=== PATIENT | female | born 1960 | race Caucasian/White ===

== ENCOUNTER 2016-09-25 18:01 | Emergency (ER) | payer MEDICAID ==
[~2016-09-25] VITALS: Ht 160 cm; Wt 53.5 kg
[~2016-09-25 18:01] MED LIST: CEFD300C2 PO; CYCL-259 PO; FLUO20CA19 PO; HYDR-3138 PO; HYDR1TAB12 PO; LIDO700A5 TD; PRED20TA PO; SERT100T PO
[2016-09-25] MEDS ORDERED: ONDANSETRON 2MG/ML, 2ML ONE (18:25)
[2016-09-25] MEDS ORDERED: ONDANSETRON 2MG/ML, 2ML IVPush ONE (18:30)
[2016-09-25] MEDS ORDERED: DIAZEPAM 5 MG/ML, 2ML IVPush ONE ×2 (18:30→19:57)
[2016-09-25] MEDS ORDERED: SODIUM CHLORIDE 0.9% 1,000ML IVBOLUS ONE (18:30)
[2016-09-25] MEDS ORDERED: SODIUM CHLORIDE FLUSH 10ML SYR IVF ONE (18:30)
[2016-09-25] MEDS ORDERED: DIAZEPAM 5 MG/ML, 2ML ONE ×2 (18:42→20:08)
[2016-09-25 18:45] LABS: HEMOGLOBIN 15.3 g/dL (11.7-16.4)
[2016-09-25] MEDS ORDERED: OXYC5CAP4 PO (18:54)
[2016-09-25 19:00] LABS: ASPARTATE AMINO TRANSFERASE 38 U/L (15-37); BLOOD UREA NITROGEN 18 mg/dL (7-18)
[2016-09-25 20:39] VITALS: BP 117/75
== END 2016-09-25 20:41 | disposition home or self-care (01) ==
LOC: ED 20:35
DX: R11.2 Nausea with vomiting, unspecified (principal); E86.0 Dehydration; R25.2 Cramp and spasm; I10 Essential (primary) hypertension; Z90.710 Acquired absence of both cervix and uterus
CPT/HCPCS: 36415; 71010; 80053; 81001; 83735; 85025; 87086; 96361; 96374; 96375; 99285; J2405; J3360; J7030

== ENCOUNTER 2016-11-20 04:23 | Emergency (ER) | payer MEDICAID ==
[~2016-11-20] VITALS: Ht 160 cm; Wt 52.3 kg
[~2016-11-20 04:23] MED LIST changes: -CEFD300C2 PO; +CEFD300C37 PO; +OXYC5CAP4 PO
[2016-11-20] MEDS ORDERED: METOCLOPRAMIDE 5 MG/ML, 2ML IVPush ONE (05:00)
[2016-11-20] MEDS ORDERED: SODIUM CHLORIDE FLUSH 10ML SYR IVF ONE (05:00)
[2016-11-20] MEDS ORDERED: DIPHENHYDRAMINE 50 MG/ML, 1ML IVPush ONE (05:00)
[2016-11-20] MEDS ORDERED: SODIUM CHLORIDE 0.9% 1,000ML IVBOLUS ONE (05:00)
[2016-11-20] MEDS ORDERED: KETOROLAC 30 MG/1 ML ONE (05:00)
[2016-11-20] MEDS ORDERED: KETOROLAC 30 MG/1 ML IVPush ONE (05:00)
[2016-11-20] MEDS ORDERED: METOCLOPRAMIDE 5 MG/ML, 2ML ONE (05:01)
[2016-11-20] MEDS ORDERED: DIPHENHYDRAMINE 50 MG/ML, 1ML ONE (05:01)
[2016-11-20 05:46] LABS: BLOOD UREA NITROGEN 13 mg/dL (7-18)
[2016-11-20 05:48] VITALS: BP 144/80
== END 2016-11-20 06:11 | disposition home or self-care (01) ==
LOC: ED 05:37
DX: G43.809 Other migraine, not intractable, without status migrainosus (principal); F17.200 Nicotine dependence, unspecified, uncomplicated
CPT/HCPCS: 36415; 80048; 82040; 85025; 96361; 96374; 96375; 99284; J1200; J1885; J2765; J7030

== ENCOUNTER 2016-11-26 18:28 | Emergency (ER) | payer MEDICAID ==
[~2016-11-26] VITALS: Ht 160 cm; Wt 51.5 kg
[2016-11-26] MEDS ORDERED: ONDANSETRON 2MG/ML, 2ML IVPush ONE (19:00)
[2016-11-26] MEDS ORDERED: SODIUM CHLORIDE 0.9% 1,000ML IVBOLUS ONE (19:00)
[2016-11-26] MEDS ORDERED: SODIUM CHLORIDE FLUSH 10ML SYR IVF ONE (19:00)
[2016-11-26] MEDS ORDERED: ONDANSETRON 2MG/ML, 2ML ONE (19:20)
[2016-11-26] MEDS ORDERED: MORPHINE SULFATE 4 MG/ML, 1ML ONE ×2 (19:20→20:02)
[2016-11-26] MEDS: MORPHINE SULFATE 4 MG/ML, 1ML IVPush PRN ×2 (19:31→20:05)
[2016-11-26 19:57] LABS: ASPARTATE AMINO TRANSFERASE 52 U/L (15-37); BLOOD UREA NITROGEN 17 mg/dL (7-18)
[2016-11-26] MEDS ORDERED: OMNIPAQUE 350 MG/ML, 100ML BOTTLE ONE (21:27)
[2016-11-26] MEDS ORDERED: PROMETHAZINE 25 MG/ML, 1ML ONE (21:30)
[2016-11-26] MEDS ORDERED: PROMETHAZINE 25 MG/ML, 1ML IM ONE (21:30)
[2016-11-26 22:20] VITALS: BP 110/74
== END 2016-11-26 22:22 | disposition home or self-care (01) ==
LOC: ED 22:17
DX: K92.2 Gastrointestinal hemorrhage, unspecified (principal); K86.1 Other chronic pancreatitis; I10 Essential (primary) hypertension; R19.7 Diarrhea, unspecified; R11.2 Nausea with vomiting, unspecified; F19.10 Other psychoactive substance abuse, uncomplicated
CPT/HCPCS: 36415; 74177; 80048; 80076; 82040; 83690; 85025; 96361; 96372; 96374; 96375; 96376; 99285; J2405; J2550; J7030; Q9967

== ENCOUNTER 2016-12-19 09:54 | Emergency (ER) | payer MEDICAID ==
[~2016-12-19] VITALS: Ht 160 cm; Wt 52.6 kg
[2016-12-19 09:55] VITALS: BP 121/82
[2016-12-19] MEDS ORDERED: KETOROLAC 30 MG/1 ML ONE (10:49)
[2016-12-19] MEDS ORDERED: ONDANSETRON ODT 4 MG ONE (10:49)
[2016-12-19] MEDS ORDERED: ONDANSETRON ODT 4 MG PO ONE (11:00)
[2016-12-19] MEDS ORDERED: KETOROLAC 30 MG/1 ML IM ONE (11:00)
[2016-12-19] MEDS ORDERED: LIDOCAINE 1%, 20ML ONE (12:12)
== END 2016-12-19 11:57 | disposition home or self-care (01) ==
LOC: ED 11:07
DX: S73.101A Unspecified sprain of right hip, initial encounter (principal); S39.012A Strain of muscle, fascia and tendon of lower back, initial encounter; I10 Essential (primary) hypertension; M19.90 Unspecified osteoarthritis, unspecified site; Z90.710 Acquired absence of both cervix and uterus; W19.XXXA Unspecified fall, initial encounter; Y93.89 Activity, other specified; Y92.009 Unspecified place in unspecified non-institutional (private) residence as the place of occurrence of the external cause; Y99.9 Unspecified external cause status
CPT/HCPCS: 73502; 96372; 99284; J1885; Q0162

== ENCOUNTER 2017-01-16 17:24 | Inpatient (IN) | payer MEDICAID ==
[~2017-01-16] VITALS: Ht 160 cm; Wt 57.1 kg
[2017-01-16] MEDS ORDERED: SODIUM CHLORIDE 0.9% 1,000 ML IV ONE (18:06)
[2017-01-16] MEDS ORDERED: FAMOTIDINE 20 MG/2 ML ONE (18:10)
[2017-01-16] MEDS ORDERED: HYDROmorphone 1 MG/ML, 1ML ONE ×2 (18:10→20:24)
[2017-01-16] MEDS ORDERED: ONDANSETRON 2MG/ML, 2ML ONE (18:10)
[2017-01-16] MEDS: HYDROmorphone 1 MG/ML, 1ML IVPush PRN ×2 (18:16→20:33)
[2017-01-16] MEDS ORDERED: LOPERAMIDE 2 MG CAPSULE ONE (18:22)
[2017-01-16] MEDS ORDERED: ONDANSETRON 2MG/ML, 2ML IVPush ONE ×2 (18:30→20:30)
[2017-01-16] MEDS ORDERED: SODIUM CHLORIDE 0.9% 1,000ML IVBOLUS ONE ×2 (18:30→20:30)
[2017-01-16] MEDS ORDERED: LOPERAMIDE 2 MG CAPSULE PO ONE (18:30)
[2017-01-16] MEDS ORDERED: SODIUM CHLORIDE FLUSH 10ML SYR IVF ONE (18:30)
[2017-01-16] MEDS ORDERED: FAMOTIDINE 20 MG/2 ML IVP ONE (18:30)
[2017-01-16 18:39] LABS: BLOOD UREA NITROGEN 14 mg/dL (7-18)
[2017-01-16 18:43] LABS: ASPARTATE AMINO TRANSFERASE 81 U/L (15-37)
[2017-01-16] MEDS ORDERED: TEMAZEPAM 15 MG CAPSULE PO PRN (20:30)
[2017-01-16] MEDS ORDERED: LABETALOL 5MG/ML 40ML VIAL IVPush PRN (20:30)
[2017-01-16] MEDS ORDERED: THIAMINE 100 MG, MVI ADULT 10 ML, FOLIC ACID 1 MG in D5%-0.9% NACL 1,000 ML IV SCH (20:30)
[2017-01-16] MEDS ORDERED: OXYcodone IR 5MG TABLET PO PRN (20:30)
[2017-01-16] MEDS ORDERED: LORazepam 1MG TABLET PO PRN (20:30)
[2017-01-16] MEDS ORDERED: DOCUSATE 100 MG CAPSULE PO PRN (20:30)
[2017-01-16 21:10] VITALS: BP 108/70
[2017-01-16] MEDS: FAMOTIDINE 20 MG/2 ML IVPush SCH (22:31)
[2017-01-16] MEDS: morphine SULFATE 10 MG/ML, 1ML IVPush PRN (22:32)
[2017-01-16] MEDS: NICOTINE 14MG/24 HR PATCH.TD24 TD SCH (22:46)
[2017-01-17] MEDS: morphine SULFATE 10 MG/ML, 1ML IVPush PRN ×7 (01:36→20:35)
[2017-01-17 02:58] VITALS: BP 117/79
[2017-01-17 05:18] LABS: ASPARTATE AMINO TRANSFERASE 57 U/L (15-37); BLOOD UREA NITROGEN 12 mg/dL (7-18)
[2017-01-17 07:32] VITALS: BP 110/75
[2017-01-17] MEDS: FAMOTIDINE 20 MG/2 ML IVPush SCH ×2 (07:42→19:59)
[2017-01-17] MEDS ORDERED: POTASSIUM PHOSPHATE 22 MEQ in SODIUM CHLORIDE 0.9% 500 ML IV ONE (08:30)
[2017-01-17] MEDS: ONDANSETRON 2MG/ML, 2ML IVPush PRN ×2 (14:03→23:18)
[2017-01-17 15:23] VITALS: BP 116/79
[2017-01-17] MEDS ORDERED: DIPHENHYDRAMINE 25 MG CAPSULE PO ONE (16:00)
[2017-01-17] MEDS ORDERED: DIPHENHYDRAMINE 50 MG/ML, 1ML IVPush PRN (19:30)
[2017-01-17] MEDS: NICOTINE 14MG/24 HR PATCH.TD24 TD SCH (19:59)
[2017-01-17 20:27] VITALS: BP 122/81
[2017-01-17] MEDS: SODIUM CHLORIDE 0.9% 1,000 ML IV SCH (20:35)
[2017-01-18] MEDS: morphine SULFATE 10 MG/ML, 1ML IVPush PRN ×3 (00:29→08:51)
[2017-01-18 03:16] VITALS: BP 104/65
[2017-01-18] MEDS: SODIUM CHLORIDE 0.9% 1,000 ML IV SCH ×2 (04:44→12:30)
[2017-01-18 05:43] LABS: BLOOD UREA NITROGEN 7 mg/dL (7-18)
[2017-01-18 05:45] LABS: ASPARTATE AMINO TRANSFERASE 74 U/L (15-37)
[2017-01-18 07:34] VITALS: BP 117/80
[2017-01-18] MEDS: FAMOTIDINE 20 MG/2 ML IVPush SCH (08:51)
[2017-01-18] MEDS ORDERED: MULTIVITAMINS/MINERALS TABLET PO SCH (09:00)
[2017-01-18] MEDS ORDERED: THIAMINE 100MG TABLET PO SCH (09:00)
[2017-01-18] MEDS ORDERED: MAGNESIUM SULFATE PMX 4GM/100M 100 ML IV ONE (11:30)
[2017-01-18] MEDS ORDERED: POTASSIUM PHOSPHATE 44 MEQ in SODIUM CHLORIDE 0.9% 500 ML IV ONE (11:30)
[2017-01-18 14:06] VITALS: BP 103/69
== END 2017-01-18 15:06 | disposition left against medical advice (07) | DRG 439 ==
LOC: ED 17:38 → EDIP 20:09 → 3NE 20:59
PROVIDERS: ADMIT Internal Medicine; ATTEND Internal Medicine
DX: K85.20 Alcohol induced acute pancreatitis without necrosis or infection (principal); E87.1 Hypo-osmolality and hyponatremia; E87.2 Acidosis; F17.210 Nicotine dependence, cigarettes, uncomplicated; F10.20 Alcohol dependence, uncomplicated; K76.0 Fatty (change of) liver, not elsewhere classified; D75.89 Other specified diseases of blood and blood-forming organs; D69.6 Thrombocytopenia, unspecified; E83.39 Other disorders of phosphorus metabolism; E83.42 Hypomagnesemia; K70.9 Alcoholic liver disease, unspecified; E86.0 Dehydration; Z71.6 Tobacco abuse counseling; Z82.49 Family history of ischemic heart disease and other diseases of the circulatory system; Z90.710 Acquired absence of both cervix and uterus
CPT/HCPCS: 36415; 74022; 76700; 80053; 80061; 82607; 82746; 83690; 83735; 84100; 84443; 85025; 93005; 96374; 96375; J1170; J2405; J3411; J7042; J1200; J2270; J3475; J7030; J7040; Q0163; S0028

== ENCOUNTER 2017-02-08 17:29 | Inpatient (IN) | payer MEDICAID ==
[~2017-02-08] VITALS: Ht 160 cm; Wt 52.2 kg
[~2017-02-08 17:29] MED LIST changes: -HYDR-3138 PO; +HYDR-3237 PO; +OXYC5CAP2 PO; -OXYC5CAP4 PO
[2017-02-08] MEDS ORDERED: ALBUTEROL/IPRATROPIUM 2.5MG/0.5MG, 3 ML NPPB PRN (18:00)
[2017-02-08] MEDS ORDERED: methylPREDNISolone SOD SUCC 125 MG/2 ML ONE (18:20)
[2017-02-08 18:21] LABS: HEMATOCRIT 44.5 % (34.6-47.8); HEMOGLOBIN 15.2 g/dL (11.7-16.4); WHITE BLOOD COUNT 8.9 x10^3/uL (3.4-10)
[2017-02-08] MEDS ORDERED: methylPREDNISolone SOD SUCC 125 MG/2 ML IVP ONE (18:30)
[2017-02-08] MEDS ORDERED: OMNIPAQUE 350 MG/ML, 100ML BOTTLE ONE (18:35)
[2017-02-08 18:42] LABS: ASPARTATE AMINO TRANSFERASE 129 U/L (15-37); BLOOD UREA NITROGEN 11 mg/dL (7-18)
[2017-02-08 18:47] LABS: IS PT STATUS REG ER OR PRE ER? YES
[2017-02-08] MEDS ORDERED: SODIUM CHLORIDE FLUSH 10ML SYR IVF ONE (19:00)
[2017-02-08] MEDS ORDERED: SODIUM CHLORIDE 0.9% 1,000ML IVBOLUS ONE (19:30)
[2017-02-08] MEDS ORDERED: LORazepam 2 MG/ML, 1ML IVPush PRN (20:00)
[2017-02-08] MEDS ORDERED: SODIUM CHLORIDE FLUSH 10ML SYR IVF PRN (20:00)
[2017-02-08] MEDS ORDERED: NS + 20MEQ KCL 1,000 ML IV SCH (20:27)
[2017-02-08] MEDS ORDERED: LORazepam 2 MG/ML, 1ML IV PRN ×2 (20:30)
[2017-02-08] MEDS ORDERED: GUAIFENESIN/DM 200-20MG, 10ML UDC PO PRN (20:30)
[2017-02-08] MEDS ORDERED: LORazepam 1MG TABLET PO PRN (20:30)
[2017-02-08] MEDS: methylPREDNISolone SOD SUCC 125 MG/2 ML IVPush SCH (20:30)
[2017-02-08] MEDS ORDERED: ACETAMINOPHEN 325 MG TABLET PO PRN (20:30)
[2017-02-08] MEDS: NICOTINE 14MG/24 HR PATCH.TD24 TD SCH (20:30)
[2017-02-08] MEDS ORDERED: POLYETHYLENE GLYCOL 17 GM PACKET PO PRN (20:30)
[2017-02-08] MEDS ORDERED: ENOXAPARIN 40 MG/0.4 ML ONE (20:58)
[2017-02-08] MEDS ORDERED: CEFTRIAXONE PMX 1GM/50ML 50 ML ONE (20:58)
[2017-02-08] MEDS ORDERED: NS + 20MEQ KCL 1,000 ML IV ONE (20:58)
[2017-02-08] MEDS: CEFTRIAXONE PMX 1GM/50ML 50 ML IV SCH (21:11)
[2017-02-08] MEDS: ENOXAPARIN 40 MG/0.4 ML SQ SCH (21:11)
[2017-02-08] MEDS: DOXYCYCLINE 100 MG in DEXTROSE 5% 250 ML IV SCH (22:30)
[2017-02-08 23:20] VITALS: BP 121/81
[2017-02-08 23:23] VITALS: BP 121/82
[2017-02-09] MEDS ORDERED: LORazepam 1MG TABLET ONE (00:29)
[2017-02-09] MEDS: LORazepam 1MG TABLET PO PRN ×3 (00:33→20:36)
[2017-02-09] MEDS: ONDANSETRON 2MG/ML, 2ML IVPush PRN ×4 (00:33→20:17)
[2017-02-09 01:27] VITALS: BP 125/87
[2017-02-09] MEDS: LORazepam 2 MG/ML, 1ML IV PRN ×2 (02:54→06:22)
[2017-02-09] MEDS: methylPREDNISolone SOD SUCC 125 MG/2 ML IVPush SCH ×3 (04:29→20:17)
[2017-02-09 05:44] LABS: ASPARTATE AMINO TRANSFERASE 146 U/L (15-37); BLOOD UREA NITROGEN 7 mg/dL (7-18)
[2017-02-09 05:56] LABS: HEMATOCRIT 40.2 % (34.6-47.8); HEMOGLOBIN 13.6 g/dL (11.7-16.4); WHITE BLOOD COUNT 4.2 x10^3/uL (3.4-10)
[2017-02-09 07:20] VITALS: BP 144/88
[2017-02-09] MEDS: DOXYCYCLINE 100 MG in DEXTROSE 5% 250 ML IV SCH ×2 (08:30→21:29)
[2017-02-09] MEDS: SENNA/DOCUSATE TABLET PO SCH (09:00)
[2017-02-09] MEDS: FLUTICASONE/VILANTEROL 100-25MCG/INH INH SCH (09:00)
[2017-02-09] MEDS: morphine SULFATE 10 MG/ML, 1ML IVPush PRN ×3 (14:03→20:36)
[2017-02-09 15:00] VITALS: BP 128/84
[2017-02-09 19:55] VITALS: BP 120/81
[2017-02-09] MEDS: CEFTRIAXONE PMX 1GM/50ML 50 ML IV SCH (20:16)
[2017-02-09] MEDS: ENOXAPARIN 40 MG/0.4 ML SQ SCH (20:17)
[2017-02-09] MEDS: NICOTINE 14MG/24 HR PATCH.TD24 TD SCH (20:17)
[2017-02-10] MEDS: morphine SULFATE 10 MG/ML, 1ML IVPush PRN ×8 (00:14→21:57)
[2017-02-10] MEDS: LORazepam 0.5MG TABLET PO PRN ×3 (00:15→08:53)
[2017-02-10 03:59] VITALS: BP 116/79
[2017-02-10] MEDS: methylPREDNISolone SOD SUCC 125 MG/2 ML IVPush SCH ×3 (04:27→21:15)
[2017-02-10] MEDS: ONDANSETRON 2MG/ML, 2ML IVPush PRN ×3 (04:27→18:31)
[2017-02-10] MEDS: ALBUTEROL/IPRATROPIUM 2.5MG/0.5MG, 3 ML NPPB PRN (05:00)
[2017-02-10 07:35] VITALS: BP 112/77
[2017-02-10] MEDS: SENNA/DOCUSATE TABLET PO SCH (07:48)
[2017-02-10] MEDS ORDERED: LORazepam 1MG TABLET ONE (08:48)
[2017-02-10] MEDS: FLUTICASONE/VILANTEROL 100-25MCG/INH INH SCH (08:52)
[2017-02-10] MEDS: DOXYCYCLINE 100 MG in DEXTROSE 5% 250 ML IV SCH ×2 (08:53→21:57)
[2017-02-10] MEDS ORDERED: POTASSIUM CHLORIDE 20 MEQ, MAGNESIUM SULFATE 1 GM, THIAMINE 100 MG, FOLIC ACID 1 MG, MV... IV SCH (09:00)
[2017-02-10] MEDS: LORazepam 2 MG/ML, 1ML IV PRN ×3 (11:30→21:15)
[2017-02-10 14:02] VITALS: BP 121/83
[2017-02-10 20:00] VITALS: BP 119/77
[2017-02-10] MEDS: NICOTINE 14MG/24 HR PATCH.TD24 TD SCH (20:30)
[2017-02-10] MEDS: ENOXAPARIN 40 MG/0.4 ML SQ SCH (21:14)
[2017-02-10] MEDS: CEFTRIAXONE PMX 1GM/50ML 50 ML IV SCH (21:14)
[2017-02-11] MEDS: ALBUTEROL/IPRATROPIUM 2.5MG/0.5MG, 3 ML NPPB PRN ×2 (00:43→16:47)
[2017-02-11] MEDS: morphine SULFATE 10 MG/ML, 1ML IVPush PRN ×6 (01:16→20:44)
[2017-02-11] MEDS: ONDANSETRON 2MG/ML, 2ML IVPush PRN ×4 (01:16→22:46)
[2017-02-11] MEDS: LORazepam 1MG TABLET PO PRN ×2 (02:31→22:34)
[2017-02-11 02:56] VITALS: BP 117/79
[2017-02-11] MEDS: methylPREDNISolone SOD SUCC 125 MG/2 ML IVPush SCH (04:16)
[2017-02-11 05:13] LABS: HEMATOCRIT 36.8 % (34.6-47.8); HEMOGLOBIN 12.3 g/dL (11.7-16.4); WHITE BLOOD COUNT 5.3 x10^3/uL (3.4-10)
[2017-02-11 05:22] LABS: BLOOD UREA NITROGEN 11 mg/dL (7-18)
[2017-02-11 07:29] VITALS: BP 125/84
[2017-02-11] MEDS: SENNA/DOCUSATE TABLET PO SCH (08:03)
[2017-02-11] MEDS: DOXYCYCLINE 100 MG in DEXTROSE 5% 250 ML IV SCH ×2 (08:10→22:22)
[2017-02-11] MEDS: FLUTICASONE/VILANTEROL 100-25MCG/INH INH SCH (08:10)
[2017-02-11] MEDS ORDERED: LORazepam 1MG TABLET ONE (08:23)
[2017-02-11] MEDS: LORazepam 0.5MG TABLET PO PRN ×2 (08:28→15:22)
[2017-02-11] MEDS ORDERED: FLUCONAZOLE 100 MG TABLET PO ONE (09:30)
[2017-02-11] MEDS: FAMOTIDINE 20 MG/2 ML IVPush SCH ×2 (11:25→22:22)
[2017-02-11] MEDS: SUCRALFATE 1 GM/10 ML UDC PO SCH ×3 (11:26→22:22)
[2017-02-11 13:03] VITALS: BP 134/82
[2017-02-11] MEDS: DOCUSATE 100 MG CAPSULE PO PRN (15:23)
[2017-02-11] MEDS: methylPREDNISolone SOD SUCC 40 MG/ML IVPush SCH ×2 (18:17→20:44)
[2017-02-11 20:01] VITALS: BP 122/84
[2017-02-11] MEDS: NICOTINE 14MG/24 HR PATCH.TD24 TD SCH (20:30)
[2017-02-11] MEDS: CEFTRIAXONE PMX 1GM/50ML 50 ML IV SCH (20:44)
[2017-02-11] MEDS: ENOXAPARIN 40 MG/0.4 ML SQ SCH (22:22)
[2017-02-12] MEDS: morphine SULFATE 10 MG/ML, 1ML IVPush PRN ×3 (00:44→08:38)
[2017-02-12 02:39] VITALS: BP 118/80
[2017-02-12] MEDS: ONDANSETRON 2MG/ML, 2ML IVPush PRN (04:34)
[2017-02-12] MEDS: LORazepam 1MG TABLET PO PRN (05:56)
[2017-02-12] MEDS: FLUTICASONE/VILANTEROL 100-25MCG/INH INH SCH (08:15)
[2017-02-12] MEDS: SUCRALFATE 1 GM/10 ML UDC PO SCH ×4 (08:15→20:25)
[2017-02-12] MEDS: SENNA/DOCUSATE TABLET PO SCH (08:16)
[2017-02-12] MEDS: FAMOTIDINE 20 MG/2 ML IVPush SCH ×2 (08:16→20:25)
[2017-02-12] MEDS: methylPREDNISolone SOD SUCC 40 MG/ML IVPush SCH ×2 (08:16→20:25)
[2017-02-12 08:22] VITALS: BP 126/79
[2017-02-12] MEDS: DOXYCYCLINE 100 MG in DEXTROSE 5% 250 ML IV SCH ×2 (10:33→22:38)
[2017-02-12 12:50] VITALS: BP 129/82
[2017-02-12] MEDS: HYDROcodone/APAP 5/325 TABLET PO PRN ×3 (14:28→22:38)
[2017-02-12 19:20] VITALS: BP 121/81
[2017-02-12] MEDS: NICOTINE 14MG/24 HR PATCH.TD24 TD SCH (20:20)
[2017-02-12] MEDS: CEFTRIAXONE PMX 1GM/50ML 50 ML IV SCH (20:25)
[2017-02-12] MEDS: ENOXAPARIN 40 MG/0.4 ML SQ SCH (20:25)
[2017-02-13 04:00] VITALS: BP 121/90
[2017-02-13] MEDS ORDERED: LORazepam 1MG TABLET ONE (06:03)
[2017-02-13] MEDS: HYDROcodone/APAP 5/325 TABLET PO PRN ×4 (06:07→20:22)
[2017-02-13] MEDS: LORazepam 1MG TABLET PO PRN ×3 (06:07→20:22)
[2017-02-13] MEDS: DOCUSATE 100 MG CAPSULE PO PRN (07:44)
[2017-02-13] MEDS: methylPREDNISolone SOD SUCC 40 MG/ML IVPush SCH (07:44)
[2017-02-13] MEDS: FAMOTIDINE 20 MG/2 ML IVPush SCH ×2 (07:44→20:22)
[2017-02-13] MEDS: SUCRALFATE 1 GM/10 ML UDC PO SCH ×4 (07:44→20:22)
[2017-02-13] MEDS: SENNA/DOCUSATE TABLET PO SCH (07:47)
[2017-02-13] MEDS: FLUTICASONE/VILANTEROL 100-25MCG/INH INH SCH (07:47)
[2017-02-13 07:56] VITALS: BP 123/94
[2017-02-13] MEDS: DOXYCYCLINE 100 MG in DEXTROSE 5% 250 ML IV SCH ×2 (10:47→22:48)
[2017-02-13] MEDS: ALBUTEROL/IPRATROPIUM 2.5MG/0.5MG, 3 ML NPPB PRN ×2 (10:55→17:20)
[2017-02-13 12:23] LABS: ASPARTATE AMINO TRANSFERASE 680 U/L (15-37); BLOOD UREA NITROGEN 12 mg/dL (7-18)
[2017-02-13 12:25] LABS: HEMATOCRIT 44.9 % (34.6-47.8); HEMOGLOBIN 15.1 g/dL (11.7-16.4); WHITE BLOOD COUNT 4.3 x10^3/uL (3.4-10)
[2017-02-13] MEDS ORDERED: POTASSIUM CHLORIDE 20 MEQ TAB.ER.PRT PO ONE (14:00)
[2017-02-13 14:11] VITALS: BP 116/89
[2017-02-13 19:46] VITALS: BP 113/82
[2017-02-13] MEDS: NICOTINE 14MG/24 HR PATCH.TD24 TD SCH (20:22)
[2017-02-13] MEDS: ENOXAPARIN 40 MG/0.4 ML SQ SCH (20:22)
[2017-02-13] MEDS: CEFTRIAXONE PMX 1GM/50ML 50 ML IV SCH (20:22)
[2017-02-14 02:01] VITALS: BP 117/85
[2017-02-14] MEDS: HYDROcodone/APAP 5/325 TABLET PO PRN ×6 (02:02→20:55)
[2017-02-14 05:42] LABS: HEMATOCRIT 42.4 % (34.6-47.8); HEMOGLOBIN 14.3 g/dL (11.7-16.4); WHITE BLOOD COUNT 5.8 x10^3/uL (3.4-10)
[2017-02-14 06:13] LABS: ASPARTATE AMINO TRANSFERASE 321 U/L (15-37); BLOOD UREA NITROGEN 13 mg/dL (7-18)
[2017-02-14] MEDS: LORazepam 1MG TABLET PO PRN ×3 (06:37→20:55)
[2017-02-14] MEDS: SUCRALFATE 1 GM/10 ML UDC PO SCH ×4 (07:03→20:53)
[2017-02-14] MEDS: SENNA/DOCUSATE TABLET PO SCH (07:03)
[2017-02-14] MEDS: FOLIC ACID 1 MG TABLET PO SCH (07:03)
[2017-02-14] MEDS: FLUTICASONE/VILANTEROL 100-25MCG/INH INH SCH (07:03)
[2017-02-14] MEDS: MULTIVITAMIN 1 TABLET PO SCH (07:03)
[2017-02-14] MEDS: FAMOTIDINE 20 MG/2 ML IVPush SCH ×2 (07:03→20:53)
[2017-02-14] MEDS: THIAMINE 100 MG/ML, 2ML IM SCH (07:04)
[2017-02-14 07:59] VITALS: BP 121/87
[2017-02-14] MEDS ORDERED: GUAI12009 PO (09:12)
[2017-02-14] MEDS ORDERED: FLUT1AER INH (09:12)
[2017-02-14] MEDS ORDERED: PRED10TA PO (09:12)
[2017-02-14] MEDS ORDERED: FAMO-79 PO (09:12)
[2017-02-14] MEDS: ONDANSETRON 2MG/ML, 2ML IVPush PRN (09:38)
[2017-02-14] MEDS: DOXYCYCLINE 100 MG in DEXTROSE 5% 250 ML IV SCH ×2 (09:38→22:21)
[2017-02-14 14:05] VITALS: BP 119/84
[2017-02-14 19:29] VITALS: BP 122/83
[2017-02-14] MEDS: NICOTINE 14MG/24 HR PATCH.TD24 TD SCH (20:30)
[2017-02-14] MEDS: ENOXAPARIN 40 MG/0.4 ML SQ SCH (20:52)
[2017-02-14] MEDS: CEFTRIAXONE PMX 1GM/50ML 50 ML IV SCH (20:52)
[2017-02-15] MEDS: HYDROcodone/APAP 5/325 TABLET PO PRN ×4 (01:25→13:20)
[2017-02-15 01:55] VITALS: BP 115/78
[2017-02-15 05:39] LABS: BLOOD UREA NITROGEN 13 mg/dL (7-18)
[2017-02-15 05:43] LABS: ASPARTATE AMINO TRANSFERASE 247 U/L (15-37)
[2017-02-15] MEDS: FLUTICASONE/VILANTEROL 100-25MCG/INH INH SCH (06:57)
[2017-02-15] MEDS: FOLIC ACID 1 MG TABLET PO SCH (06:57)
[2017-02-15] MEDS: LORazepam 1MG TABLET PO PRN ×2 (06:57→13:20)
[2017-02-15] MEDS: FAMOTIDINE 20 MG/2 ML IVPush SCH (06:57)
[2017-02-15] MEDS: SUCRALFATE 1 GM/10 ML UDC PO SCH ×2 (06:57→11:43)
[2017-02-15] MEDS: SENNA/DOCUSATE TABLET PO SCH (06:57)
[2017-02-15] MEDS: MULTIVITAMIN 1 TABLET PO SCH (06:58)
[2017-02-15] MEDS: THIAMINE 100 MG/ML, 2ML IM SCH (06:59)
[2017-02-15 07:54] VITALS: BP 94/64
[2017-02-15] MEDS ORDERED: ONDA4TAB12 PO ×2 (10:21)
[2017-02-15 12:32] VITALS: BP 101/69
== END 2017-02-15 14:20 | disposition home or self-care (01) | DRG 191 ==
LOC: ED 18:22 → EDIP 20:06 → 4EST 22:58
PROVIDERS: ADMIT Family Medicine; ATTEND Family Medicine
DX: J44.1 Chronic obstructive pulmonary disease with (acute) exacerbation (principal); K76.6 Portal hypertension; K76.0 Fatty (change of) liver, not elsewhere classified; B37.3 Candidiasis of vulva and vagina; I10 Essential (primary) hypertension; F10.220 Alcohol dependence with intoxication, uncomplicated; F10.239 Alcohol dependence with withdrawal, unspecified; K29.20 Alcoholic gastritis without bleeding; F17.210 Nicotine dependence, cigarettes, uncomplicated; M19.90 Unspecified osteoarthritis, unspecified site; M06.9 Rheumatoid arthritis, unspecified; R09.02 Hypoxemia; F41.9 Anxiety disorder, unspecified; F32.9 Major depressive disorder, single episode, unspecified; R79.89 Other specified abnormal findings of blood chemistry; Z90.710 Acquired absence of both cervix and uterus; Z71.6 Tobacco abuse counseling; Z79.891 Long term (current) use of opiate analgesic
CPT/HCPCS: 36415; 71010; 71275; 76700; 80048; 80053; 80307; 83605; 83690; 83735; 83880; 84145; 84484; 85025; 85379; 87040; 93005; 93306; 94640; 96374; J0696; J1650; J2405; J3411; J3475; J3480; J7060; J7620; Q9967; J2060; J2270; J2920; J2930; J7030; J7512; S0028

== ENCOUNTER 2017-02-17 12:10 | Emergency (ER) | payer MEDICAID ==
[~2017-02-17] VITALS: Ht 160 cm; Wt 53.3 kg
[~2017-02-17 12:10] MED LIST changes: +FAMO-79 PO; +FLUT1AER INH; +GUAI12009 PO; +ONDA4TAB12 PO; +PRED10TA PO
[2017-02-17] MEDS ORDERED: SODIUM CHLORIDE FLUSH 10ML SYR IVF ONE (13:00)
[2017-02-17] MEDS ORDERED: SODIUM CHLORIDE 0.9% 1,000ML IVBOLUS ONE (13:00)
[2017-02-17 13:17] LABS: HEMATOCRIT 39.2 % (34.6-47.8); HEMOGLOBIN 13.2 g/dL (11.7-16.4); WHITE BLOOD COUNT 6.2 x10^3/uL (3.4-10)
[2017-02-17 13:27] LABS: BLOOD UREA NITROGEN 19 mg/dL (7-18)
[2017-02-17 13:32] LABS: IS PT STATUS REG ER OR PRE ER? YES
[2017-02-17] MEDS ORDERED: POTASSIUM CHLORIDE 20 MEQ TAB.ER.PRT PO ONE (14:00)
[2017-02-17] MEDS ORDERED: POTASSIUM CHLORIDE 20 MEQ TAB.ER.PRT ONE (14:52)
[2017-02-17 14:55] VITALS: BP 99/63
== END 2017-02-17 14:57 | disposition home or self-care (01) ==
LOC: ED 13:31
DX: E86.0 Dehydration (principal); I95.89 Other hypotension; J44.9 Chronic obstructive pulmonary disease, unspecified; M19.90 Unspecified osteoarthritis, unspecified site; I10 Essential (primary) hypertension; Z79.891 Long term (current) use of opiate analgesic
CPT/HCPCS: 36415; 71010; 80048; 82040; 84484; 85025; 93005; 99285; J7030

== ENCOUNTER 2017-02-27 10:49 | Emergency (ER) | payer MEDICAID ==
[~2017-02-27] VITALS: Ht 160 cm; Wt 53.0 kg
[2017-02-27 12:30] VITALS: BP 105/71
== END 2017-02-27 12:32 | disposition home or self-care (01) ==
LOC: ED 12:23
DX: S22.42XA Multiple fractures of ribs, left side, initial encounter for closed fracture (principal); I10 Essential (primary) hypertension; J44.9 Chronic obstructive pulmonary disease, unspecified; Z79.891 Long term (current) use of opiate analgesic; Z90.710 Acquired absence of both cervix and uterus; Y04.2XXA Assault by strike against or bumped into by another person, initial encounter
CPT/HCPCS: 99284

== ENCOUNTER 2017-03-12 07:41 | Emergency (ER) | payer MEDICAID ==
[~2017-03-12] VITALS: Ht 160 cm; Wt 55.0 kg
[2017-03-12] MEDS ORDERED: SODIUM CHLORIDE 0.9% 1,000 ML IV ONE (08:16)
[2017-03-12] MEDS ORDERED: MORPHINE SULFATE 4 MG/ML, 1ML ONE ×2 (08:29→09:14)
[2017-03-12] MEDS ORDERED: ONDANSETRON 2MG/ML, 2ML ONE (08:29)
[2017-03-12] MEDS ORDERED: FAMOTIDINE 20 MG/2 ML ONE (08:29)
[2017-03-12] MEDS ORDERED: SODIUM CHLORIDE 0.9% 1,000ML IVBOLUS ONE (08:30)
[2017-03-12] MEDS ORDERED: FAMOTIDINE 20 MG/2 ML IVP ONE (08:30)
[2017-03-12] MEDS ORDERED: ONDANSETRON 2MG/ML, 2ML IVPush ONE (08:30)
[2017-03-12] MEDS: MORPHINE SULFATE 4 MG/ML, 1ML IVPush PRN ×2 (08:38→09:16)
[2017-03-12 08:47] LABS: HEMATOCRIT 39.9 % (34.6-47.8); HEMOGLOBIN 13.5 g/dL (11.7-16.4); WHITE BLOOD COUNT 7.6 x10^3/uL (3.4-10)
[2017-03-12 08:56] LABS: ASPARTATE AMINO TRANSFERASE 59 U/L (15-37); BLOOD UREA NITROGEN 8 mg/dL (7-18)
[2017-03-12] MEDS ORDERED: MAALOX/HYOSCYAMINE/LIDOCAINE 45 ML BTL PO ONE (09:30)
[2017-03-12] MEDS ORDERED: MAALOX/HYOSCYAMINE/LIDOCAINE 45 ML BTL ONE (09:34)
[2017-03-12 10:29] VITALS: BP 128/79
== END 2017-03-12 10:34 | disposition home or self-care (01) ==
LOC: ED 09:50
DX: N30.90 Cystitis, unspecified without hematuria (principal); K29.20 Alcoholic gastritis without bleeding; J20.9 Acute bronchitis, unspecified; I10 Essential (primary) hypertension; J44.0 Chronic obstructive pulmonary disease with (acute) lower respiratory infection; I95.9 Hypotension, unspecified; G43.909 Migraine, unspecified, not intractable, without status migrainosus; Z79.891 Long term (current) use of opiate analgesic; Z90.710 Acquired absence of both cervix and uterus
CPT/HCPCS: 36415; 71010; 76700; 80053; 81001; 83690; 85025; 87086; 93005; 96361; 96374; 96375; 96376; 99285; J2405; J7030; S0028

== ENCOUNTER 2017-04-18 10:20 | Emergency (ER) | payer MEDICAID ==
[~2017-04-18] VITALS: Ht 160 cm; Wt 53.2 kg
[2017-04-18] MEDS ORDERED: METOCLOPRAMIDE 5 MG/ML, 2ML ONE (11:26)
[2017-04-18] MEDS ORDERED: DIPHENHYDRAMINE 50 MG/ML, 1ML ONE (11:26)
[2017-04-18] MEDS ORDERED: METOCLOPRAMIDE 5 MG/ML, 2ML IVPush ONE (11:30)
[2017-04-18] MEDS ORDERED: SODIUM CHLORIDE FLUSH 10ML SYR IVF ONE (11:30)
[2017-04-18] MEDS ORDERED: DIPHENHYDRAMINE 50 MG/ML, 1ML IVPush ONE (11:30)
[2017-04-18] MEDS ORDERED: SODIUM CHLORIDE 0.9% 1,000ML IVBOLUS ONE (11:30)
[2017-04-18] MEDS ORDERED: KETOROLAC 30 MG/1 ML ONE (11:53)
[2017-04-18] MEDS ORDERED: KETOROLAC 30 MG/1 ML IV ONE (12:00)
[2017-04-18 12:15] VITALS: BP 112/64
== END 2017-04-18 12:17 | disposition home or self-care (01) ==
LOC: ED 11:58
DX: G43.001 Migraine without aura, not intractable, with status migrainosus (principal); I10 Essential (primary) hypertension; J44.9 Chronic obstructive pulmonary disease, unspecified; Z79.891 Long term (current) use of opiate analgesic
CPT/HCPCS: 96374; 96375; 99284; J1200; J1885; J2765; J7030

== ENCOUNTER 2017-05-15 16:34 | Emergency (ER) | payer MEDICAID ==
[~2017-05-15] VITALS: Ht 160 cm; Wt 56.0 kg
[2017-05-15] MEDS ORDERED: SODIUM CHLORIDE FLUSH 10ML SYR IVF ONE (17:00)
[2017-05-15] MEDS ORDERED: MAALOX/HYOSCYAMINE/LIDOCAINE 45 ML BTL PO ONE (17:00)
[2017-05-15] MEDS ORDERED: ONDANSETRON 2MG/ML, 2ML IVPush ONE (17:00)
[2017-05-15] MEDS ORDERED: SODIUM CHLORIDE 0.9% 1,000ML IVBOLUS ONE (17:00)
[2017-05-15] MEDS ORDERED: FAMOTIDINE 20 MG/2 ML IVP ONE (17:00)
[2017-05-15] MEDS ORDERED: MAALOX/HYOSCYAMINE/LIDOCAINE 45 ML BTL ONE (17:05)
[2017-05-15] MEDS ORDERED: ONDANSETRON 2MG/ML, 2ML ONE ×2 (17:05→19:16)
[2017-05-15] MEDS ORDERED: FAMOTIDINE 20 MG/2 ML ONE (17:07)
[2017-05-15 17:09] LABS: HEMATOCRIT 47.1 % (34.6-47.8); WHITE BLOOD COUNT 15.3 x10^3/uL (3.4-10)
[2017-05-15 17:21] LABS: ASPARTATE AMINO TRANSFERASE 14 U/L (15-37); BLOOD UREA NITROGEN 19 mg/dL (7-18)
[2017-05-15] MEDS ORDERED: HYDROmorphone 1 MG/ML, 1ML ONE ×2 (17:56→19:16)
[2017-05-15] MEDS: HYDROmorphone 1 MG/ML, 1ML IVPush PRN ×2 (18:02→19:21)
[2017-05-15] MEDS ORDERED: OMNIPAQUE 350 MG/ML, 100ML BOTTLE ONE (18:42)
[2017-05-15 19:23] VITALS: BP 122/77
[2017-05-16] MEDS ORDERED: OXYC-302 PO (11:57)
== END 2017-05-15 19:46 | disposition home or self-care (01) ==
LOC: ED 17:32
DX: K85.90 Acute pancreatitis without necrosis or infection, unspecified (principal); G43.909 Migraine, unspecified, not intractable, without status migrainosus
CPT/HCPCS: 36415; 74177; 80053; 83690; 85025; 96361; 96374; 96375; 96376; 99285; J1170; J2405; J7030; Q9967; S0028

== ENCOUNTER 2017-05-16 10:32 | Inpatient (IN) | payer MEDICAID ==
[~2017-05-16] VITALS: Ht 160 cm; Wt 56.0 kg
[2017-05-16] MEDS ORDERED: FAMOTIDINE 20 MG/2 ML IVP ONE (11:00)
[2017-05-16] MEDS ORDERED: HYDROmorphone 1 MG/ML, 1ML IVPush PRN (11:00)
[2017-05-16] MEDS ORDERED: ONDANSETRON 2MG/ML, 2ML IVPush ONE (11:00)
[2017-05-16] MEDS ORDERED: LORazepam 2 MG/ML, 1ML IVPush ONE (11:00)
[2017-05-16] MEDS ORDERED: SODIUM CHLORIDE FLUSH 10ML SYR IVF ONE (11:00)
[2017-05-16] MEDS ORDERED: ONDANSETRON 2MG/ML, 2ML ONE (11:23)
[2017-05-16] MEDS ORDERED: HYDROmorphone 1 MG/ML, 1ML ONE ×2 (11:23→13:40)
[2017-05-16] MEDS ORDERED: LORazepam 2 MG/ML, 1ML ONE (11:24)
[2017-05-16] MEDS ORDERED: FAMOTIDINE 20 MG/2 ML ONE (11:24)
[2017-05-16 11:28] LABS: HEMATOCRIT 44.3 % (34.6-47.8); HEMOGLOBIN 15.4 g/dL (11.7-16.4); WHITE BLOOD COUNT 10.9 x10^3/uL (3.4-10)
[2017-05-16 11:42] LABS: ASPARTATE AMINO TRANSFERASE 12 U/L (15-37); BLOOD UREA NITROGEN 11 mg/dL (7-18)
[2017-05-16 11:44] LABS: LACTATE DEHYDROGENASE 142 U/L (84-246)
[2017-05-16] MEDS ORDERED: morphine SULFATE 10 MG/ML, 1ML ONE (11:54)
[2017-05-16] MEDS ORDERED: OXYC-302 PO (11:57)
[2017-05-16] MEDS ORDERED: MORPHINE SULFATE 4 MG/ML, 1ML IVPush ONE (12:00)
[2017-05-16] MEDS: D5%-0.45% NACL 1,000 ML IV SCH (12:13)
[2017-05-16] MEDS ORDERED: LORazepam 0.5MG TABLET PO PRN (12:30)
[2017-05-16] MEDS ORDERED: HYDROcodone/APAP 5/325 TABLET PO PRN (12:30)
[2017-05-16] MEDS ORDERED: LORazepam 2 MG/ML, 1ML IV PRN ×4 (12:30)
[2017-05-16] MEDS ORDERED: LABETALOL 5MG/ML, 20ML IVPush PRN (12:30)
[2017-05-16] MEDS ORDERED: LORazepam 1MG TABLET PO PRN ×4 (12:30)
[2017-05-16] MEDS ORDERED: ONDANSETRON ODT 4 MG PO PRN (12:30)
[2017-05-16 13:30] VITALS: BP 105/73
[2017-05-16] MEDS: POTASSIUM CHLORIDE 20 MEQ, MAGNESIUM SULFATE 1 GM, THIAMINE 100 MG, MVI ADULT 10 ML in ... IV SCH (13:46)
[2017-05-16] MEDS: ENOXAPARIN 40 MG/0.4 ML SQ SCH (13:47)
[2017-05-16] MEDS ORDERED: HYDROmorphone 1 MG/ML, 1ML IV ONE (14:00)
[2017-05-16] MEDS: morphine SULFATE 10 MG/ML, 1ML IVPush PRN ×3 (15:11→21:41)
[2017-05-16 15:14] VITALS: BP 105/73
[2017-05-16 16:26] LABS: DAU SCREEN DISCLAIMER
[2017-05-16 16:59] LABS: PATH.CAST-FLAG NOT PRESENT; SPERM-FLAG NOT PRESENT; SRC-FLAG NOT PRESENT; XTAL-FLAG NOT PRESENT; YLC-FLAG NOT PRESENT
[2017-05-16 20:05] VITALS: BP 101/66
[2017-05-16] MEDS: CEFTRIAXONE PMX 1GM/50ML 50 ML IV SCH (20:29)
[2017-05-16 21:58] VITALS: BP 96/68
[2017-05-16] MEDS: LORazepam 2 MG/ML, 1ML IV PRN (23:15)
[2017-05-17 00:14] VITALS: BP 101/68
[2017-05-17] MEDS: morphine SULFATE 10 MG/ML, 1ML IVPush PRN ×6 (00:45→17:06)
[2017-05-17] MEDS: LORazepam 2 MG/ML, 1ML IV PRN (03:07)
[2017-05-17 05:29] LABS: ASPARTATE AMINO TRANSFERASE 13 U/L (15-37); BLOOD UREA NITROGEN 16 mg/dL (7-18)
[2017-05-17 05:39] LABS: HEMATOCRIT 39.6 % (34.6-47.8); HEMOGLOBIN 13.7 g/dL (11.7-16.4); WHITE BLOOD COUNT 8.7 x10^3/uL (3.4-10)
[2017-05-17] MEDS: D5%-0.45% NACL 1,000 ML IV SCH ×2 (06:51→12:36)
[2017-05-17 06:58] VITALS: BP 93/62
[2017-05-17] MEDS: ONDANSETRON 2MG/ML, 2ML IVPush PRN ×3 (07:22→23:30)
[2017-05-17] MEDS: SENNA/DOCUSATE TABLET PO SCH (07:38)
[2017-05-17] MEDS ORDERED: MAALOX/HYOSCYAMINE/LIDOCAINE 45 ML BTL PO ONE (10:30)
[2017-05-17] MEDS: PANTOPRAZOLE 40 MG IV IVPush SCH ×2 (12:39→20:56)
[2017-05-17 13:56] VITALS: BP 103/69
[2017-05-17] MEDS: ENOXAPARIN 40 MG/0.4 ML SQ SCH (14:00)
[2017-05-17] MEDS: POTASSIUM CHLORIDE 20 MEQ, MAGNESIUM SULFATE 1 GM, THIAMINE 100 MG, MVI ADULT 10 ML in ... IV SCH (14:24)
[2017-05-17] MEDS ORDERED: HYDROmorphone 1 MG/ML, 1ML ONE (17:36)
[2017-05-17] MEDS: HYDROmorphone 1 MG/ML, 1ML IV PRN ×2 (17:38→20:56)
[2017-05-17 18:52] VITALS: BP 105/72
[2017-05-17] MEDS: CEFTRIAXONE PMX 1GM/50ML 50 ML IV SCH (20:56)
[2017-05-18] MEDS: HYDROmorphone 1 MG/ML, 1ML IV PRN ×2 (00:02→03:00)
[2017-05-18 01:42] VITALS: BP 120/68
[2017-05-18] MEDS: LORazepam 2 MG/ML, 1ML IV PRN (04:06)
[2017-05-18 05:47] LABS: HEMATOCRIT 39.5 % (34.6-47.8); HEMOGLOBIN 13.6 g/dL (11.7-16.4); WHITE BLOOD COUNT 7.7 x10^3/uL (3.4-10)
[2017-05-18 05:57] LABS: BLOOD UREA NITROGEN 8 mg/dL (7-18)
[2017-05-18] MEDS ORDERED: HYDROmorphone 1 MG/ML, 1ML IV PRN (07:00)
[2017-05-18] MEDS ORDERED: MAALOX/HYOSCYAMINE/LIDOCAINE 45 ML BTL PO ONE (08:00)
[2017-05-18] MEDS ORDERED: HYDROcodone/APAP 5/325 TABLET PO PRN (08:00)
[2017-05-18 08:05] VITALS: BP 118/78
[2017-05-18] MEDS: SENNA/DOCUSATE TABLET PO SCH (08:12)
[2017-05-18] MEDS: PANTOPRAZOLE 40 MG IV IVPush SCH (08:12)
[2017-05-18] MEDS: D5%-0.45% NACL 1,000 ML IV SCH (08:15)
== END 2017-05-18 08:20 | disposition left against medical advice (07) | DRG 439 ==
LOC: ED 11:07 → EDIP 11:55 → 4NOR 12:58
PROVIDERS: ADMIT Internal Medicine; ATTEND Internal Medicine
DX: K85.20 Alcohol induced acute pancreatitis without necrosis or infection (principal); E87.1 Hypo-osmolality and hyponatremia; K76.0 Fatty (change of) liver, not elsewhere classified; N39.0 Urinary tract infection, site not specified; D75.89 Other specified diseases of blood and blood-forming organs; K86.1 Other chronic pancreatitis; E86.0 Dehydration; F10.10 Alcohol abuse, uncomplicated; F17.210 Nicotine dependence, cigarettes, uncomplicated; I10 Essential (primary) hypertension; J44.9 Chronic obstructive pulmonary disease, unspecified; K59.00 Constipation, unspecified; Z79.891 Long term (current) use of opiate analgesic; M10.9 Gout, unspecified
CPT/HCPCS: 36415; 71010; 74020; 76700; 80048; 80053; 80307; 81001; 82040; 83605; 83615; 83690; 83735; 84100; 85025; 87040; 87077; 87086; 87186; 96374; 96375; J0696; J1170; J1650; J2405; J3411; J3475; J3480; C9113; G0479; J2060; J2270; J7030; S0028

== ENCOUNTER 2017-06-13 05:50 | Emergency (ER) | payer MEDICAID ==
[~2017-06-13] VITALS: Ht 160 cm; Wt 55.0 kg
[~2017-06-13 05:50] MED LIST changes: +OXYC-302 PO
[2017-06-13] MEDS ORDERED: SODIUM CHLORIDE 0.9% 1,000 ML IV ONE (06:24)
[2017-06-13] MEDS ORDERED: ONDANSETRON 2MG/ML, 2ML IVPush ONE (06:30)
[2017-06-13] MEDS ORDERED: FAMOTIDINE 20 MG/2 ML IVP ONE (06:30)
[2017-06-13] MEDS ORDERED: SODIUM CHLORIDE 0.9% 1,000ML IVBOLUS ONE (06:30)
[2017-06-13] MEDS ORDERED: SODIUM CHLORIDE FLUSH 10ML SYR IVF ONE (06:30)
[2017-06-13] MEDS ORDERED: LORazepam 2 MG/ML, 1ML IVPush PRN (06:30)
[2017-06-13] MEDS ORDERED: FAMOTIDINE 20 MG/2 ML ONE (06:32)
[2017-06-13] MEDS ORDERED: LORazepam 2 MG/ML, 1ML ONE (06:32)
[2017-06-13] MEDS ORDERED: ONDANSETRON 2MG/ML, 2ML ONE (06:32)
[2017-06-13 07:08] LABS: HEMATOCRIT 43.1 % (34.6-47.8); HEMOGLOBIN 14.6 g/dL (11.7-16.4)
[2017-06-13 07:21] LABS: ASPARTATE AMINO TRANSFERASE 54 U/L (15-37); BLOOD UREA NITROGEN 11 mg/dL (7-18)
[2017-06-13] MEDS ORDERED: MORPHINE SULFATE 4 MG/ML, 1ML ONE (07:28)
[2017-06-13] MEDS ORDERED: MORPHINE SULFATE 4 MG/ML, 1ML IVPush PRN (07:30)
[2017-06-13 08:47] VITALS: BP 128/86
== END 2017-06-13 08:50 | disposition home or self-care (01) ==
LOC: ED 06:51
DX: J44.9 Chronic obstructive pulmonary disease, unspecified (principal); K29.20 Alcoholic gastritis without bleeding; F10.10 Alcohol abuse, uncomplicated; I10 Essential (primary) hypertension; I95.9 Hypotension, unspecified
CPT/HCPCS: 36415; 71010; 80053; 81003; 82140; 83690; 85025; 85610; 85730; 93005; 96374; 96375; 99285; J2060; J2405; J7030; S0028

== ENCOUNTER 2017-06-28 05:25 | Emergency (ER) | payer MEDICAID ==
[~2017-06-28] VITALS: Ht 160 cm; Wt 58.0 kg
[2017-06-28 05:27] VITALS: BP 120/82
== END 2017-06-28 06:23 | disposition left against medical advice (07) ==
LOC: ED 06:16
DX: F10.10 Alcohol abuse, uncomplicated (principal); J44.9 Chronic obstructive pulmonary disease, unspecified; I10 Essential (primary) hypertension; F32.9 Major depressive disorder, single episode, unspecified; Z87.19 Personal history of other diseases of the digestive system
CPT/HCPCS: 99281

== ENCOUNTER 2017-07-03 10:06 | Inpatient (IN) | payer MEDICAID ==
[~2017-07-03] VITALS: Ht 160 cm; Wt 56.5 kg
[2017-07-03] MEDS ORDERED: SODIUM CHLORIDE 0.9% 1,000 ML IV ONE ×2 (10:32→11:33)
[2017-07-03] MEDS ORDERED: ONDANSETRON 2MG/ML, 2ML ONE (10:43)
[2017-07-03] MEDS ORDERED: LORazepam 2 MG/ML, 1ML ONE (10:43)
[2017-07-03 10:50] LABS: BASOPHILS # (AUTO) 0.01 x10^3/uL (0-0.1); BASOPHILS % (AUTO) 0 % (0-1); EOSINOPHILS # (AUTO) 0.09 x10^3/uL (0-0.4); EOSINOPHILS % (AUTO) 1 % (1-7); LYMPHOCYTES # (AUTO) 1.44 x10^3/uL (1-3.4); LYMPHOCYTES % (AUTO) 20 % (22-44); MD NO; MEAN CORPUSCULAR HEMOGLOBIN 34.7 pg (27.0-34.8); MEAN CORPUSCULAR HGB CONC 33.7 g/dL (32.4-35.8); MEAN PLATELET VOLUME 8.1 fL (7.4-10.4); MONOCYTES # (AUTO) 0.59 x10^3/uL (0.2-0.8); MONOCYTES % (AUTO) 8 % (2-9); NEUTROPHILS # (AUTO) 5.13 x10^3/uL (1.8-6.8); NEUTROPHILS % (AUTO) 71 % (42-75); PLATELET COUNT 202 x10^3/uL (130-400); RED BLOOD COUNT 4.26 x10^6/uL (3.82-5.3); RED CELL DISTRIBUTION WIDTH 16.9 % (9.6-15.2)
[2017-07-03] MEDS: LORazepam 2 MG/ML, 1ML IVPush PRN ×5 (10:54→23:30)
[2017-07-03 11:00] LABS: INTERNATIONAL NORMALIZED RATIO 1.03 (0.93-1.1); PROTHROMBIN TIME 10.7 Seconds (9.6-11.5)
[2017-07-03] MEDS ORDERED: ONDANSETRON 2MG/ML, 2ML IVPush ONE (11:00)
[2017-07-03] MEDS ORDERED: SODIUM CHLORIDE FLUSH 10ML SYR IVF ONE (11:00)
[2017-07-03] MEDS ORDERED: SODIUM CHLORIDE 0.9% 1,000ML IVBOLUS ONE (11:00)
[2017-07-03 11:05] LABS: ALANINE AMINOTRANSFERASE 37 U/L (12-78); ANION GAP 11 mmol/L (5-15); CALCIUM 8.6 mg/dL (8.5-10.1); CHLORIDE 104 mmol/L (98-107)
[2017-07-03 11:08] LABS: ALKALINE PHOSPHATASE 126 U/L (45-117); BILIRUBIN,TOTAL 0.4 mg/dL (0.2-1.0); CREATININE 0.52 mg/dL (0.55-1.02); TOTAL PROTEIN 7.9 g/dL (6.4-8.2)
[2017-07-03] MEDS ORDERED: MAALOX/HYOSCYAMINE/LIDOCAINE 45 ML BTL ONE (11:54)
[2017-07-03] MEDS ORDERED: SODIUM CHLORIDE FLUSH 10ML SYR IVF PRN (12:00)
[2017-07-03] MEDS ORDERED: MAALOX/HYOSCYAMINE/LIDOCAINE 45 ML BTL PO ONE (12:00)
[2017-07-03] MEDS: POTASSIUM CHLORIDE 20 MEQ, MAGNESIUM SULFATE 2 GM, THIAMINE 100 MG, MVI ADULT 10 ML, FO... IV SCH ×2 (15:07→22:23)
[2017-07-03] MEDS: NICOTINE 21 MG/24 HR PATCH.TD24 TD SCH (15:08)
[2017-07-03] MEDS: ENOXAPARIN 40 MG/0.4 ML SQ SCH (15:08)
[2017-07-03 15:29] VITALS: BP 107/74
[2017-07-03 18:52] VITALS: BP 100/67
[2017-07-03] MEDS: TRAZODONE 50MG TABLET PO PRN (20:24)
[2017-07-03] MEDS: LACTATED RINGERS 1,000 ML IV SCH (20:24)
[2017-07-03] MEDS: BACLOFEN 10 MG TABLET PO SCH (20:24)
[2017-07-04 00:59] VITALS: BP 108/72
[2017-07-04] MEDS: ONDANSETRON ODT 4 MG PO PRN ×2 (05:36→20:13)
[2017-07-04] MEDS: LORazepam 2 MG/ML, 1ML IVPush PRN ×5 (05:36→22:31)
[2017-07-04] MEDS: LACTATED RINGERS 1,000 ML IV SCH (05:36)
[2017-07-04 05:40] LABS: BASOPHILS # (AUTO) 0.01 x10^3/uL (0-0.1); BASOPHILS % (AUTO) 0 % (0-1); EOSINOPHILS # (AUTO) 0.11 x10^3/uL (0-0.4); EOSINOPHILS % (AUTO) 1 % (1-7); LYMPHOCYTES # (AUTO) 1.25 x10^3/uL (1-3.4); LYMPHOCYTES % (AUTO) 17 % (22-44); MD NO; MEAN CORPUSCULAR HEMOGLOBIN 34.9 pg (27.0-34.8); MEAN CORPUSCULAR HGB CONC 33.6 g/dL (32.4-35.8); MEAN CORPUSCULAR VOLUME 103.9 fL (80-100); MEAN PLATELET VOLUME 8.1 fL (7.4-10.4); MONOCYTES # (AUTO) 0.48 x10^3/uL (0.2-0.8); MONOCYTES % (AUTO) 6 % (2-9); NEUTROPHILS # (AUTO) 5.67 x10^3/uL (1.8-6.8); NEUTROPHILS % (AUTO) 76 % (42-75); PLATELET COUNT 142 x10^3/uL (130-400); RED BLOOD COUNT 3.68 x10^6/uL (3.82-5.3); RED CELL DISTRIBUTION WIDTH 16.8 % (9.6-15.2)
[2017-07-04 05:51] LABS: ALANINE AMINOTRANSFERASE 32 U/L (12-78); ALBUMIN 3.2 g/dL (3.4-5.0); ANION GAP 7 mmol/L (5-15); CALCIUM 8.3 mg/dL (8.5-10.1); CHLORIDE 106 mmol/L (98-107)
[2017-07-04 05:54] LABS: ALKALINE PHOSPHATASE 95 U/L (45-117); BILIRUBIN,TOTAL 0.5 mg/dL (0.2-1.0); TOTAL PROTEIN 6.1 g/dL (6.4-8.2)
[2017-07-04 07:57] VITALS: BP 101/63
[2017-07-04] MEDS: BACLOFEN 10 MG TABLET PO SCH ×2 (09:32→20:13)
[2017-07-04] MEDS: FAMOTIDINE 20 MG/2 ML IVPush SCH ×2 (11:09→20:13)
[2017-07-04 13:56] VITALS: BP 100/67
[2017-07-04] MEDS: NICOTINE 21 MG/24 HR PATCH.TD24 TD SCH (15:59)
[2017-07-04] MEDS: ENOXAPARIN 40 MG/0.4 ML SQ SCH (15:59)
[2017-07-04] MEDS: POTASSIUM CHLORIDE 20 MEQ, MAGNESIUM SULFATE 2 GM, THIAMINE 100 MG, MVI ADULT 10 ML, FO... IV SCH (15:59)
[2017-07-04 20:07] VITALS: BP 101/72
[2017-07-04] MEDS: OXYcodone/APAP 5/325MG TABLET PO PRN (20:13)
[2017-07-04] MEDS: MAALOX/HYOSCYAMINE/LIDOCAINE 45 ML BTL PO PRN (20:13)
[2017-07-04] MEDS: TRAZODONE 50MG TABLET PO PRN (20:13)
[2017-07-05] MEDS: POTASSIUM CHLORIDE 20 MEQ, MAGNESIUM SULFATE 2 GM, THIAMINE 100 MG, MVI ADULT 10 ML, FO... IV SCH ×2 (01:16→20:28)
[2017-07-05 01:35] VITALS: BP 105/73
[2017-07-05 01:45] LABS: CULTURE INDICATED? YES; MICROSCOPIC INDICATED
[2017-07-05] MEDS: LORazepam 2 MG/ML, 1ML IVPush PRN ×4 (03:00→20:28)
[2017-07-05] MEDS: ONDANSETRON 2MG/ML, 2ML IVPush PRN ×3 (03:00→12:39)
[2017-07-05] MEDS: morphine SULFATE 10 MG/ML, 1ML IVPush PRN ×4 (03:35→22:45)
[2017-07-05 05:31] LABS: BASOPHILS # (AUTO) 0.02 x10^3/uL (0-0.1); BASOPHILS % (AUTO) 0 % (0-1); EOSINOPHILS # (AUTO) 0.11 x10^3/uL (0-0.4); EOSINOPHILS % (AUTO) 2 % (1-7); LYMPHOCYTES # (AUTO) 1.02 x10^3/uL (1-3.4); LYMPHOCYTES % (AUTO) 16 % (22-44); MD NO; MEAN CORPUSCULAR HEMOGLOBIN 35.1 pg (27.0-34.8); MEAN CORPUSCULAR HGB CONC 33.9 g/dL (32.4-35.8); MEAN CORPUSCULAR VOLUME 103.3 fL (80-100); MEAN PLATELET VOLUME 8.4 fL (7.4-10.4); MONOCYTES # (AUTO) 0.53 x10^3/uL (0.2-0.8); MONOCYTES % (AUTO) 8 % (2-9); NEUTROPHILS # (AUTO) 4.77 x10^3/uL (1.8-6.8); NEUTROPHILS % (AUTO) 74 % (42-75); PLATELET COUNT 119 x10^3/uL (130-400); RED BLOOD COUNT 3.55 x10^6/uL (3.82-5.3); RED CELL DISTRIBUTION WIDTH 16.3 % (9.6-15.2)
[2017-07-05 05:38] LABS: CHLORIDE 104 mmol/L (98-107)
[2017-07-05 06:12] LABS: ANION GAP 6 mmol/L (5-15); CALCIUM 8.7 mg/dL (8.5-10.1); CREATININE 0.51 mg/dL (0.55-1.02)
[2017-07-05 06:13] LABS: ALANINE AMINOTRANSFERASE 62 U/L (12-78); ALBUMIN 3.3 g/dL (3.4-5.0); ALKALINE PHOSPHATASE 93 U/L (45-117); BILIRUBIN,TOTAL 0.6 mg/dL (0.2-1.0); TOTAL PROTEIN 6.6 g/dL (6.4-8.2)
[2017-07-05 06:16] LABS: FOLATE LEVEL > 20.0 ng/mL (3.1-17.5)
[2017-07-05] MEDS ORDERED: MORPHINE SULFATE 4 MG/ML, 1ML ONE ×2 (07:45→12:36)
[2017-07-05] MEDS: FAMOTIDINE 20 MG/2 ML IVPush SCH ×2 (07:54→20:28)
[2017-07-05] MEDS: BACLOFEN 10 MG TABLET PO SCH ×2 (07:54→20:28)
[2017-07-05 08:26] VITALS: BP 150/83
[2017-07-05] MEDS: SUCRALFATE 1 GM/10 ML UDC PO SCH ×3 (11:29→20:28)
[2017-07-05 14:01] VITALS: BP 111/76
[2017-07-05] MEDS: OXYcodone/APAP 5/325MG TABLET PO PRN (18:10)
[2017-07-05] MEDS: NICOTINE 21 MG/24 HR PATCH.TD24 TD SCH (18:10)
[2017-07-05] MEDS: ONDANSETRON ODT 4 MG PO PRN (18:10)
[2017-07-05] MEDS: ENOXAPARIN 40 MG/0.4 ML SQ SCH (18:14)
[2017-07-05 20:09] VITALS: BP 112/79
[2017-07-05] MEDS: TRAZODONE 50MG TABLET PO PRN (20:28)
[2017-07-05] MEDS: MAALOX/HYOSCYAMINE/LIDOCAINE 45 ML BTL PO PRN (22:45)
[2017-07-06 00:03] VITALS: BP 100/60
[2017-07-06] MEDS: LORazepam 2 MG/ML, 1ML IVPush PRN ×2 (01:01→06:22)
[2017-07-06 01:33] VITALS: BP 101/69
[2017-07-06] MEDS: morphine SULFATE 10 MG/ML, 1ML IVPush PRN ×2 (03:37→08:55)
[2017-07-06] MEDS: ONDANSETRON 2MG/ML, 2ML IVPush PRN (03:37)
[2017-07-06 05:43] LABS: BASOPHILS # (AUTO) 0.02 x10^3/uL (0-0.1); BASOPHILS % (AUTO) 0 % (0-1); EOSINOPHILS # (AUTO) 0.09 x10^3/uL (0-0.4); EOSINOPHILS % (AUTO) 1 % (1-7); LYMPHOCYTES # (AUTO) 0.91 x10^3/uL (1-3.4); LYMPHOCYTES % (AUTO) 13 % (22-44); MD NO; MEAN CORPUSCULAR HGB CONC 33.9 g/dL (32.4-35.8); MEAN CORPUSCULAR VOLUME 103.2 fL (80-100); MEAN PLATELET VOLUME 8.3 fL (7.4-10.4); MONOCYTES # (AUTO) 0.66 x10^3/uL (0.2-0.8); MONOCYTES % (AUTO) 9 % (2-9); NEUTROPHILS % (AUTO) 77 % (42-75); PLATELET COUNT 111 x10^3/uL (130-400); RED BLOOD COUNT 3.57 x10^6/uL (3.82-5.3); RED CELL DISTRIBUTION WIDTH 16.4 % (9.6-15.2)
[2017-07-06 05:51] LABS: CHLORIDE 104 mmol/L (98-107)
[2017-07-06 06:09] LABS: ALANINE AMINOTRANSFERASE 77 U/L (12-78); ALBUMIN 3.2 g/dL (3.4-5.0); ALKALINE PHOSPHATASE 97 U/L (45-117); ANION GAP 6 mmol/L (5-15); BILIRUBIN,TOTAL 0.6 mg/dL (0.2-1.0); CALCIUM 8.8 mg/dL (8.5-10.1); CREATININE 0.43 mg/dL (0.55-1.02); TOTAL PROTEIN 6.7 g/dL (6.4-8.2)
[2017-07-06] MEDS: SUCRALFATE 1 GM/10 ML UDC PO SCH ×2 (06:22→11:55)
[2017-07-06] MEDS: BACLOFEN 10 MG TABLET PO SCH (07:17)
[2017-07-06] MEDS: FAMOTIDINE 20 MG/2 ML IVPush SCH (07:17)
[2017-07-06 08:00] VITALS: BP 96/66
[2017-07-06] MEDS ORDERED: MORPHINE SULFATE 4 MG/ML, 1ML ONE (08:47)
[2017-07-06] MEDS: ONDANSETRON ODT 4 MG PO PRN (08:52)
[2017-07-06] MEDS ORDERED: POTASSIUM CHLORIDE 20 MEQ, MAGNESIUM SULFATE 2 GM, THIAMINE 100 MG, MVI ADULT 10 ML, FO... IV SCH (11:00)
[2017-07-06] MEDS ORDERED: LORA-446 PO (11:29)
[2017-07-06] MEDS ORDERED: SUCR1ORA5 PO (11:29)
[2017-07-06] MEDS ORDERED: ONDA4TAB13 PO (11:29)
[2017-07-06] MEDS ORDERED: LORazepam 1MG TABLET PO PRN (11:30)
== END 2017-07-06 12:35 | disposition home or self-care (01) | DRG 897 ==
LOC: ED 10:51 → EDIP 11:33 → 4EST 13:42
PROVIDERS: ADMIT Internal Medicine; ATTEND Internal Medicine
DX: F10.229 Alcohol dependence with intoxication, unspecified (principal); R56.9 Unspecified convulsions; F10.239 Alcohol dependence with withdrawal, unspecified; E44.1 Mild protein-calorie malnutrition; K70.10 Alcoholic hepatitis without ascites; K86.1 Other chronic pancreatitis; Y90.9 Presence of alcohol in blood, level not specified; D75.89 Other specified diseases of blood and blood-forming organs; Z68.22 Body mass index [BMI] 22.0-22.9, adult; F17.210 Nicotine dependence, cigarettes, uncomplicated; I10 Essential (primary) hypertension; J44.9 Chronic obstructive pulmonary disease, unspecified; K29.20 Alcoholic gastritis without bleeding; Z79.891 Long term (current) use of opiate analgesic; Z87.440 Personal history of urinary (tract) infections; Z90.710 Acquired absence of both cervix and uterus; Z91.19 Patient's noncompliance with other medical treatment and regimen; Z71.6 Tobacco abuse counseling
CPT/HCPCS: 36415; 71045; 80053; 80307; 81001; 82140; 82607; 82746; 83690; 84439; 84443; 85025; 85610; 85730; 87077; 87086; 87186; 93005; 96374; J1650; J2405; J3411; J3475; J3480; J7042; Q0162; J2060; J2270; J7030; J7120; S0028

== ENCOUNTER 2017-07-09 13:39 | Emergency (ER) | payer MEDICAID ==
[~2017-07-09] VITALS: Ht 160 cm; Wt 57.0 kg
[~2017-07-09 13:39] MED LIST changes: +LORA-446 PO; +ONDA4TAB13 PO; +SUCR1ORA5 PO
[2017-07-09 14:50] LABS: ALANINE AMINOTRANSFERASE 75 U/L (12-78); ALBUMIN 3.7 g/dL (3.4-5.0); ANION GAP 10 mmol/L (5-15); CALCIUM 9.5 mg/dL (8.5-10.1); CHLORIDE 101 mmol/L (98-107); CREATININE 0.66 mg/dL (0.55-1.02)
[2017-07-09 14:51] LABS: MEAN CORPUSCULAR HEMOGLOBIN 34.4 pg (27.0-34.8); MEAN CORPUSCULAR HGB CONC 33.6 g/dL (32.4-35.8); MEAN CORPUSCULAR VOLUME 102.3 fL (80-100); MEAN PLATELET VOLUME 8.4 fL (7.4-10.4); PLATELET COUNT 168 x10^3/uL (130-400); RED BLOOD COUNT 4.36 x10^6/uL (3.82-5.3); RED CELL DISTRIBUTION WIDTH 16.2 % (9.6-15.2)
[2017-07-09 14:52] LABS: ALKALINE PHOSPHATASE 118 U/L (45-117); BILIRUBIN,TOTAL 0.7 mg/dL (0.2-1.0); TOTAL PROTEIN 8.2 g/dL (6.4-8.2)
[2017-07-09 15:09] LABS: HEMOGRAM NOTE RECHECKED
[2017-07-09 15:14] LABS: MD YES
[2017-07-09 15:16] LABS: BAND#(MANUAL) 0.18 x10^3/uL; BANDS%(MANUAL) 2 % (0-7); LYMPH#(MANUAL) 0.46 x10^3/uL (1-3.4); LYMPHS% (MANUAL) 5 % (22-44); MONOS#(MANUAL) 2.09 x10^3/uL (0.3-2.7); MONOS% (MANUAL) 23 % (2-9); SEG#(MANUAL) 6.37 x10^3/uL (1.8-6.8); SEGS% (MANUAL) 70 % (42-75)
[2017-07-09 15:20] LABS: <PLATELET ESTIMATE> ADEQUATE; <PLT MORPHOLOGY> NORMAL PLT MORPH
[2017-07-09 15:21] LABS: ANISOCYTOSIS 1+
[2017-07-09] MEDS ORDERED: KETOROLAC 30 MG/1 ML ONE (15:53)
[2017-07-09] MEDS ORDERED: DIPHENHYDRAMINE 50 MG/ML, 1ML ONE (15:53)
[2017-07-09] MEDS ORDERED: PROCHLORPERAZINE 5 MG/ML, 2ML ONE (15:53)
[2017-07-09] MEDS ORDERED: SODIUM CHLORIDE FLUSH 10ML SYR IVF ONE (16:00)
[2017-07-09] MEDS ORDERED: DIPHENHYDRAMINE 50 MG/ML, 1ML IVPush ONE (16:00)
[2017-07-09] MEDS ORDERED: PROCHLORPERAZINE 5 MG/ML, 2ML IVPush ONE (16:00)
[2017-07-09] MEDS ORDERED: SODIUM CHLORIDE 0.9% 1,000ML IVBOLUS ONE (16:00)
[2017-07-09] MEDS ORDERED: KETOROLAC 30 MG/1 ML IVPush ONE (16:00)
[2017-07-09 16:31] LABS: CULTURE INDICATED? YES; MICROSCOPIC INDICATED
[2017-07-09] MEDS ORDERED: HYDROmorphone 2 MG/ML, 1ML IV ONE (17:00)
[2017-07-09] MEDS ORDERED: HYDROmorphone 2 MG/ML, 1ML ONE (17:35)
[2017-07-09 18:23] VITALS: BP 130/75
== END 2017-07-09 18:24 | disposition home or self-care (01) ==
LOC: ED 16:17
DX: G43.109 Migraine with aura, not intractable, without status migrainosus (principal); N30.00 Acute cystitis without hematuria; F10.129 Alcohol abuse with intoxication, unspecified; F32.9 Major depressive disorder, single episode, unspecified; I10 Essential (primary) hypertension; J44.9 Chronic obstructive pulmonary disease, unspecified; M19.90 Unspecified osteoarthritis, unspecified site
CPT/HCPCS: 36415; 70450; 80053; 81001; 85025; 87077; 87086; 96361; 96374; 96375; 99285; J0780; J1170; J1200; J1885; J7030; 87186

== ENCOUNTER 2017-07-10 14:58 | Inpatient (IN) | payer MEDICAID ==
[~2017-07-10] VITALS: Ht 160 cm; Wt 55.9 kg
[2017-07-10] MEDS ORDERED: SODIUM CHLORIDE 0.9% 1,000ML IVBOLUS ONE ×3 (15:30→20:00)
[2017-07-10] MEDS ORDERED: KETOROLAC 30 MG/1 ML IVPush ONE (15:30)
[2017-07-10] MEDS ORDERED: PROCHLORPERAZINE 5 MG/ML, 2ML IVPush ONE (15:30)
[2017-07-10] MEDS ORDERED: SODIUM CHLORIDE FLUSH 10ML SYR IVF ONE (15:30)
[2017-07-10] MEDS ORDERED: DIPHENHYDRAMINE 50 MG/ML, 1ML IVPush ONE (15:30)
[2017-07-10] MEDS ORDERED: HYDROmorphone 1 MG/ML, 1ML IVPush PRN (16:00)
[2017-07-10] MEDS ORDERED: DIPHENHYDRAMINE 50 MG/ML, 1ML ONE (16:11)
[2017-07-10] MEDS ORDERED: PROCHLORPERAZINE 5 MG/ML, 2ML ONE (16:11)
[2017-07-10] MEDS ORDERED: KETOROLAC 30 MG/1 ML ONE (16:11)
[2017-07-10 16:36] LABS: ALANINE AMINOTRANSFERASE 68 U/L (12-78); ALBUMIN 3.3 g/dL (3.4-5.0); ANION GAP 10 mmol/L (5-15); CALCIUM 8.6 mg/dL (8.5-10.1); CHLORIDE 99 mmol/L (98-107); CREATININE 0.57 mg/dL (0.55-1.02); MEAN CORPUSCULAR HEMOGLOBIN 34.7 pg (27.0-34.8); MEAN CORPUSCULAR HGB CONC 34.2 g/dL (32.4-35.8); MEAN CORPUSCULAR VOLUME 101.7 fL (80-100); MEAN PLATELET VOLUME 8.8 fL (7.4-10.4); PLATELET COUNT 151 x10^3/uL (130-400); RED BLOOD COUNT 3.89 x10^6/uL (3.82-5.3); RED CELL DISTRIBUTION WIDTH 16.3 % (9.6-15.2)
[2017-07-10 16:38] LABS: ALKALINE PHOSPHATASE 152 U/L (45-117); BILIRUBIN,TOTAL 0.8 mg/dL (0.2-1.0); TOTAL PROTEIN 7.7 g/dL (6.4-8.2)
[2017-07-10 16:55] LABS: AMPHETAMINE SCREEN, URINE Negative (Negative); BARBITURATE SCREEN, URINE Negative (Negative); BENZODIAZEPINE SCREEN, URINE Negative (Negative); CANNABINOID SCREEN, URINE Negative (Negative); COCAINE SCREEN, URINE Negative (Negative); METHADONE SCREEN, URINE Negative (Negative); OPIATE SCREEN, URINE Positive (Negative)
[2017-07-10] MEDS ORDERED: CEFTRIAXONE PMX 1GM/50ML 50 ML IV ONE (17:00)
[2017-07-10 17:20] LABS: MD YES
[2017-07-10] MEDS ORDERED: HYDROmorphone 2 MG/ML, 1ML ONE (17:24)
[2017-07-10 17:25] LABS: BAND#(MANUAL) 2.36 x10^3/uL; BANDS%(MANUAL) 18 % (0-7); LYMPH#(MANUAL) 0.26 x10^3/uL (1-3.4); LYMPHS% (MANUAL) 2 % (22-44); MONOS#(MANUAL) 1.83 x10^3/uL (0.3-2.7); MONOS% (MANUAL) 14 % (2-9); SEG#(MANUAL) 8.65 x10^3/uL (1.8-6.8); SEGS% (MANUAL) 66 % (42-75)
[2017-07-10 17:26] LABS: ANISOCYTOSIS 1+
[2017-07-10] MEDS ORDERED: CEFTRIAXONE PMX 1GM/50ML 50 ML ONE (17:26)
[2017-07-10 17:27] LABS: <PLATELET ESTIMATE> ADEQUATE; <PLT MORPHOLOGY> NORMAL PLT MORPH
[2017-07-10] MEDS ORDERED: ONDANSETRON ODT 4 MG PO PRN (20:30)
[2017-07-10] MEDS ORDERED: ONDANSETRON 2MG/ML, 2ML IVPush PRN (20:30)
[2017-07-10] MEDS ORDERED: CEFTRIAXONE PMX 1GM/50ML 50 ML IV SCH (20:30)
[2017-07-10] MEDS ORDERED: LABETALOL 5MG/ML, 20ML IVPush PRN (20:30)
[2017-07-10] MEDS ORDERED: POLYETHYLENE GLYCOL 17 GM PACKET PO PRN (20:30)
[2017-07-10 20:41] VITALS: BP 107/66
[2017-07-10 20:42] LABS: HCT (SEDRATE) 39.5 % (34.6-47.8)
[2017-07-10] MEDS: CEFTRIAXONE 1,000 MG in SODIUM CHLORIDE 0.9% 50 ML IV SCH (20:43)
[2017-07-10 20:48] LABS: FREE T4 (FREE THYROXINE) 1.24 ng/dL (0.76-1.46)
[2017-07-10] MEDS ORDERED: POTASSIUM CHLORIDE 10% 20 MEQ/15 ML UDC PO ONE (21:00)
[2017-07-10] MEDS: OXYcodone/APAP 5/325MG TABLET PO SCH (21:55)
[2017-07-10] MEDS: SUCRALFATE 1 GM/10 ML UDC PO SCH (21:55)
[2017-07-10] MEDS: ENOXAPARIN 40 MG/0.4 ML SQ SCH (21:56)
[2017-07-10] MEDS: CYCLOBENZAPRINE 10 MG TABLET PO SCH (21:56)
[2017-07-10 22:01] VITALS: BP 107/66
[2017-07-10] MEDS: SODIUM CHLORIDE 0.9% 1,000 ML IV SCH (22:35)
[2017-07-11 01:01] VITALS: BP 91/51
[2017-07-11] MEDS: KETOROLAC 30 MG/1 ML IVPush SCH (02:26)
[2017-07-11] MEDS: SODIUM CHLORIDE 0.9% 1,000 ML IV SCH ×2 (05:29→13:49)
[2017-07-11] MEDS ORDERED: OXYcodone/APAP 5/325MG TABLET PO ONE (05:30)
[2017-07-11 05:36] LABS: MEAN CORPUSCULAR HEMOGLOBIN 35.2 pg (27.0-34.8); MEAN CORPUSCULAR HGB CONC 34.1 g/dL (32.4-35.8); MEAN CORPUSCULAR VOLUME 103.1 fL (80-100); MEAN PLATELET VOLUME 8.3 fL (7.4-10.4); PLATELET COUNT 107 x10^3/uL (130-400); RED BLOOD COUNT 2.95 x10^6/uL (3.82-5.3); RED CELL DISTRIBUTION WIDTH 16.5 % (9.6-15.2)
[2017-07-11 05:39] LABS: ALANINE AMINOTRANSFERASE 62 U/L (12-78); ALBUMIN 2.2 g/dL (3.4-5.0); ANION GAP 6 mmol/L (5-15); CALCIUM 7.4 mg/dL (8.5-10.1); CHLORIDE 111 mmol/L (98-107)
[2017-07-11 05:41] LABS: ALKALINE PHOSPHATASE 116 U/L (45-117); BILIRUBIN,TOTAL 0.5 mg/dL (0.2-1.0); TOTAL PROTEIN 5.4 g/dL (6.4-8.2)
[2017-07-11 06:55] LABS: MD YES
[2017-07-11 07:03] LABS: ANISOCYTOSIS 1+; BAND#(MANUAL) 0.18 x10^3/uL; BANDS%(MANUAL) 2 % (0-7); EOS#(MANUAL) 0.18 x10^3/uL (0.0-0.4); EOS% (MANUAL) 2 % (1-7); MONOS#(MANUAL) 0.55 x10^3/uL (0.3-2.7); MONOS% (MANUAL) 6 % (2-9); SEG#(MANUAL) 8.28 x10^3/uL (1.8-6.8); SEGS% (MANUAL) 90 % (42-75)
[2017-07-11 07:04] LABS: <PLATELET ESTIMATE> DECREASED; <PLT MORPHOLOGY> NORMAL PLT MORPH
[2017-07-11] MEDS: PANTOPRAZOLE 20MG TABLET PO SCH (07:30)
[2017-07-11] MEDS: SUCRALFATE 1 GM/10 ML UDC PO SCH ×4 (07:47→22:09)
[2017-07-11 08:09] VITALS: BP 102/69
[2017-07-11] MEDS ORDERED: methylPREDNISolone SOD SUCC 125 MG/2 ML IVPush SCH (09:00)
[2017-07-11] MEDS: OXYcodone/APAP 5/325MG TABLET PO SCH ×3 (09:28→22:10)
[2017-07-11] MEDS: SENNA/DOCUSATE TABLET PO SCH (09:28)
[2017-07-11] MEDS: CYCLOBENZAPRINE 10 MG TABLET PO SCH ×3 (09:28→22:10)
[2017-07-11] MEDS ORDERED: MORPHINE SULFATE 4 MG/ML, 1ML IVPush PRN (10:00)
[2017-07-11 16:03] VITALS: BP 100/62
[2017-07-11] MEDS ORDERED: SODIUM PHOSPHATE 4 MEQ/ML IV SCH (16:30)
[2017-07-11] MEDS ORDERED: SODIUM PHOSPHATE 40 MEQ in SODIUM CHLORIDE 0.9% 500 ML IV ONE (16:30)
[2017-07-11 19:42] VITALS: BP 101/68
[2017-07-11] MEDS: ENOXAPARIN 40 MG/0.4 ML SQ SCH (22:11)
[2017-07-11] MEDS: CEFTRIAXONE 1,000 MG in SODIUM CHLORIDE 0.9% 50 ML IV SCH (23:11)
[2017-07-12] MEDS: SODIUM CHLORIDE 0.9% 1,000 ML IV SCH ×2 (02:16→09:21)
[2017-07-12 02:56] VITALS: BP 100/62
[2017-07-12] MEDS ORDERED: ACETAMINOPHEN 500 MG TABLET PO PRN (03:00)
[2017-07-12 05:17] LABS: ALBUMIN 2.1 g/dL (3.4-5.0); ANION GAP 6 mmol/L (5-15); CALCIUM 7.6 mg/dL (8.5-10.1); CHLORIDE 109 mmol/L (98-107); CREATININE 0.42 mg/dL (0.55-1.02)
[2017-07-12 05:18] LABS: BASOPHILS # (AUTO) 0.02 x10^3/uL (0-0.1); BASOPHILS % (AUTO) 0 % (0-1); EOSINOPHILS # (AUTO) 0.01 x10^3/uL (0-0.4); EOSINOPHILS % (AUTO) 0 % (1-7); LYMPHOCYTES # (AUTO) 0.77 x10^3/uL (1-3.4); LYMPHOCYTES % (AUTO) 12 % (22-44); MD NO; MEAN CORPUSCULAR HEMOGLOBIN 35.1 pg (27.0-34.8); MEAN CORPUSCULAR HGB CONC 33.7 g/dL (32.4-35.8); MEAN PLATELET VOLUME 8.8 fL (7.4-10.4); MONOCYTES # (AUTO) 0.67 x10^3/uL (0.2-0.8); MONOCYTES % (AUTO) 11 % (2-9); NEUTROPHILS # (AUTO) 4.84 x10^3/uL (1.8-6.8); NEUTROPHILS % (AUTO) 77 % (42-75); PLATELET COUNT 107 x10^3/uL (130-400); RED BLOOD COUNT 2.84 x10^6/uL (3.82-5.3); RED CELL DISTRIBUTION WIDTH 16.8 % (9.6-15.2)
[2017-07-12] MEDS: ALBUTEROL/IPRATROPIUM 2.5MG/0.5MG, 3 ML NPPB PRN ×2 (05:59→22:09)
[2017-07-12 07:17] VITALS: BP 115/72
[2017-07-12] MEDS ORDERED: SODIUM PHOSPHATE 4 MEQ/ML IV SCH (08:00)
[2017-07-12] MEDS ORDERED: POTASSIUM CHLORIDE 20 MEQ TAB.ER.PRT PO ONE (08:00)
[2017-07-12] MEDS ORDERED: SODIUM PHOSPHATE 30 MMOL in SODIUM CHLORIDE 0.9% 500 ML IV ONE (08:00)
[2017-07-12] MEDS: OXYcodone/APAP 5/325MG TABLET PO SCH ×3 (09:19→21:50)
[2017-07-12] MEDS: SUCRALFATE 1 GM/10 ML UDC PO SCH ×4 (09:19→21:50)
[2017-07-12] MEDS: SENNA/DOCUSATE TABLET PO SCH (09:20)
[2017-07-12] MEDS: CYCLOBENZAPRINE 10 MG TABLET PO SCH ×3 (09:20→21:50)
[2017-07-12] MEDS: PANTOPRAZOLE 20MG TABLET PO SCH (09:22)
[2017-07-12] MEDS: MORPHINE SULFATE 4 MG/ML, 1ML IVPush PRN ×2 (10:09→17:53)
[2017-07-12] MEDS: AZITHROMYCIN 500 MG in SODIUM CHLORIDE 0.9% 250 ML IV SCH (10:09)
[2017-07-12 14:26] VITALS: BP 113/65
[2017-07-12] MEDS: KETOROLAC 30 MG/1 ML IVPush SCH (15:24)
[2017-07-12 19:36] VITALS: BP 105/67
[2017-07-12] MEDS ORDERED: KETOROLAC 30 MG/1 ML IVPush PRN (21:00)
[2017-07-12] MEDS: ENOXAPARIN 40 MG/0.4 ML SQ SCH (21:50)
[2017-07-12] MEDS: CEFTRIAXONE 1,000 MG in SODIUM CHLORIDE 0.9% 50 ML IV SCH (23:22)
[2017-07-13] MEDS: SODIUM CHLORIDE 0.9% 1,000 ML IV SCH ×2 (01:15→20:30)
[2017-07-13] MEDS: MORPHINE SULFATE 4 MG/ML, 1ML IVPush PRN ×3 (01:55→17:53)
[2017-07-13 02:18] VITALS: BP 111/69
[2017-07-13 04:31] LABS: BASOPHILS # (AUTO) 0.01 x10^3/uL (0-0.1); BASOPHILS % (AUTO) 0 % (0-1); EOSINOPHILS # (AUTO) 0.01 x10^3/uL (0-0.4); EOSINOPHILS % (AUTO) 0 % (1-7); LYMPHOCYTES # (AUTO) 0.94 x10^3/uL (1-3.4); LYMPHOCYTES % (AUTO) 18 % (22-44); MD NO; MEAN CORPUSCULAR HEMOGLOBIN 35.3 pg (27.0-34.8); MEAN CORPUSCULAR HGB CONC 34.2 g/dL (32.4-35.8); MEAN CORPUSCULAR VOLUME 103.4 fL (80-100); MEAN PLATELET VOLUME 8.5 fL (7.4-10.4); MONOCYTES # (AUTO) 0.41 x10^3/uL (0.2-0.8); MONOCYTES % (AUTO) 8 % (2-9); NEUTROPHILS % (AUTO) 75 % (42-75); PLATELET COUNT 142 x10^3/uL (130-400); RED BLOOD COUNT 2.73 x10^6/uL (3.82-5.3); RED CELL DISTRIBUTION WIDTH 16.9 % (9.6-15.2)
[2017-07-13 04:33] LABS: ALBUMIN 2.1 g/dL (3.4-5.0); ANION GAP 6 mmol/L (5-15); CALCIUM 7.2 mg/dL (8.5-10.1); CHLORIDE 110 mmol/L (98-107); CREATININE 0.49 mg/dL (0.55-1.02)
[2017-07-13] MEDS: ALBUTEROL/IPRATROPIUM 2.5MG/0.5MG, 3 ML NPPB PRN (06:52)
[2017-07-13 07:29] VITALS: BP 122/73
[2017-07-13] MEDS: PANTOPRAZOLE 20MG TABLET PO SCH (07:30)
[2017-07-13] MEDS ORDERED: POTASSIUM CHLORIDE 20 MEQ TAB.ER.PRT PO ONE ×2 (07:30→11:00)
[2017-07-13] MEDS ORDERED: SODIUM PHOSPHATE 4 MEQ/ML IV SCH (08:30)
[2017-07-13] MEDS ORDERED: POTASSIUM PHOSPHATE 44 MEQ in SODIUM CHLORIDE 0.9% 500 ML IV ONE (09:00)
[2017-07-13] MEDS: SUCRALFATE 1 GM/10 ML UDC PO SCH ×5 (09:02→20:32)
[2017-07-13] MEDS: OXYcodone/APAP 5/325MG TABLET PO SCH ×3 (09:02→20:32)
[2017-07-13] MEDS: CYCLOBENZAPRINE 10 MG TABLET PO SCH ×3 (09:02→20:32)
[2017-07-13] MEDS: SENNA/DOCUSATE TABLET PO SCH (09:02)
[2017-07-13] MEDS: AZITHROMYCIN 500 MG in SODIUM CHLORIDE 0.9% 250 ML IV SCH (09:03)
[2017-07-13] MEDS ORDERED: POTASSIUM CHLORIDE 10% 40 MEQ/30 ML UDC ONE (12:53)
[2017-07-13 13:57] VITALS: BP 135/88
[2017-07-13 14:47] LABS: ALBUMIN 2.3 g/dL (3.4-5.0); ANION GAP 7 mmol/L (5-15); CALCIUM 7.8 mg/dL (8.5-10.1); CHLORIDE 107 mmol/L (98-107); CREATININE 0.53 mg/dL (0.55-1.02)
[2017-07-13] MEDS: ALBUTEROL/IPRATROPIUM 2.5MG/0.5MG, 3 ML NPPB SCH ×2 (15:50→20:15)
[2017-07-13 18:43] VITALS: BP 107/74
[2017-07-13] MEDS: ENOXAPARIN 40 MG/0.4 ML SQ SCH (20:32)
[2017-07-13] MEDS: GUAIFENESIN/DM 200-20MG, 10ML UDC PO PRN (20:32)
[2017-07-14] MEDS: CEFTRIAXONE 1,000 MG in SODIUM CHLORIDE 0.9% 50 ML IV SCH (00:12)
[2017-07-14] MEDS: MORPHINE SULFATE 4 MG/ML, 1ML IVPush PRN (00:57)
[2017-07-14 02:50] VITALS: BP 125/95
[2017-07-14 04:59] LABS: BASOPHILS # (AUTO) 0.03 x10^3/uL (0-0.1); BASOPHILS % (AUTO) 0 % (0-1); EOSINOPHILS # (AUTO) 0.07 x10^3/uL (0-0.4); EOSINOPHILS % (AUTO) 1 % (1-7); LYMPHOCYTES % (AUTO) 15 % (22-44); MD NO; MEAN CORPUSCULAR HEMOGLOBIN 34.9 pg (27.0-34.8); MEAN CORPUSCULAR HGB CONC 34.4 g/dL (32.4-35.8); MEAN CORPUSCULAR VOLUME 101.5 fL (80-100); MEAN PLATELET VOLUME 7.7 fL (7.4-10.4); MONOCYTES # (AUTO) 0.55 x10^3/uL (0.2-0.8); MONOCYTES % (AUTO) 8 % (2-9); NEUTROPHILS # (AUTO) 5.45 x10^3/uL (1.8-6.8); NEUTROPHILS % (AUTO) 76 % (42-75); PLATELET COUNT 252 x10^3/uL (130-400); RED BLOOD COUNT 3.32 x10^6/uL (3.82-5.3); RED CELL DISTRIBUTION WIDTH 17.3 % (9.6-15.2)
[2017-07-14] MEDS: GUAIFENESIN/DM 200-20MG, 10ML UDC PO PRN (05:55)
[2017-07-14] MEDS: ALBUTEROL/IPRATROPIUM 2.5MG/0.5MG, 3 ML NPPB SCH (06:04)
[2017-07-14 07:14] VITALS: BP 107/73
[2017-07-14 07:28] LABS: ALBUMIN 2.6 g/dL (3.4-5.0); ANION GAP 6 mmol/L (5-15); CHLORIDE 104 mmol/L (98-107)
[2017-07-14] MEDS: PANTOPRAZOLE 20MG TABLET PO SCH (07:30)
[2017-07-14] MEDS ORDERED: SODIUM PHOSPHATE 30 MMOL in SODIUM CHLORIDE 0.9% 500 ML IV ONE (07:30)
[2017-07-14] MEDS ORDERED: SODIUM PHOSPHATE 4 MEQ/ML IV SCH (07:30)
[2017-07-14] MEDS ORDERED: POTASSIUM CHLORIDE 20 MEQ TAB.ER.PRT PO ONE ×2 (07:30→11:00)
[2017-07-14] MEDS ORDERED: predniSONE 50MG TABLET PO SCH (08:00)
[2017-07-14] MEDS ORDERED: CEFD300C37 PO (08:07)
[2017-07-14] MEDS ORDERED: DOXY100T PO (08:08)
[2017-07-14] MEDS ORDERED: CYCL-259 PO (08:09)
[2017-07-14] MEDS ORDERED: CEFTRIAXONE PMX 1GM/50ML 50 ML IV SCH (08:30)
[2017-07-14] MEDS: AZITHROMYCIN 500 MG in SODIUM CHLORIDE 0.9% 250 ML IV SCH (08:34)
[2017-07-14] MEDS: SUCRALFATE 1 GM/10 ML UDC PO SCH ×2 (08:35→11:00)
[2017-07-14] MEDS: OXYcodone/APAP 5/325MG TABLET PO SCH (08:35)
[2017-07-14] MEDS: CYCLOBENZAPRINE 10 MG TABLET PO SCH (08:35)
[2017-07-14] MEDS: SENNA/DOCUSATE TABLET PO SCH (08:36)
[2017-07-14] MEDS: SODIUM CHLORIDE 0.9% 1,000 ML IV SCH (08:36)
[2017-07-14 12:56] VITALS: BP 102/67
[2017-07-14] MEDS ORDERED: PHOS250T3 PO (16:07)
[2017-07-14] MEDS ORDERED: PRED10TA PO (16:11)
[2017-07-14] MEDS ORDERED: NEUTRA PHOS K 250 MG TABLET PO SCH (21:00)
== END 2017-07-14 16:18 | disposition home or self-care (01) | DRG 872 ==
LOC: ED 16:42 → EDIP 19:39 → 4WST 20:38 → DCLOUNGE 07-14 16:05
PROVIDERS: ADMIT Hospitalist; ATTEND Hospitalist
DX: A41.9 Sepsis, unspecified organism (principal); E44.1 Mild protein-calorie malnutrition; K74.60 Unspecified cirrhosis of liver; E87.1 Hypo-osmolality and hyponatremia; N12 Tubulo-interstitial nephritis, not specified as acute or chronic; N39.0 Urinary tract infection, site not specified; D75.89 Other specified diseases of blood and blood-forming organs; E83.39 Other disorders of phosphorus metabolism; E87.6 Hypokalemia; F10.10 Alcohol abuse, uncomplicated; F17.210 Nicotine dependence, cigarettes, uncomplicated; G43.109 Migraine with aura, not intractable, without status migrainosus; G89.29 Other chronic pain; I10 Essential (primary) hypertension; J32.0 Chronic maxillary sinusitis; J44.9 Chronic obstructive pulmonary disease, unspecified; M19.90 Unspecified osteoarthritis, unspecified site; Z79.891 Long term (current) use of opiate analgesic; Z90.710 Acquired absence of both cervix and uterus
CPT/HCPCS: 36415; 71045; 80048; 80053; 80307; 82040; 83605; 83690; 83735; 84100; 84439; 85025; 85651; 86140; 87040; 87086; 93005; 94640; 96361; 96365; 96375; J0456; J0696; J1170; J1650; J1885; J2405; J7620; Q0162; J0780; J1200; J7030; J7040; J7050; J7512

== ENCOUNTER 2017-07-29 12:18 | Emergency (ER) | payer MEDICAID ==
[~2017-07-29] VITALS: Ht 160 cm; Wt 53.9 kg
[~2017-07-29 12:18] MED LIST changes: +DOXY100T PO; +PHOS250T3 PO; -SERT100T PO; +SERT20OR PO
[2017-07-29 12:19] VITALS: BP 106/77
== END 2017-07-29 13:59 | disposition home or self-care (01) ==
LOC: ED 13:30
DX: M25.561 Pain in right knee (principal); J44.9 Chronic obstructive pulmonary disease, unspecified; G43.909 Migraine, unspecified, not intractable, without status migrainosus; I10 Essential (primary) hypertension; F17.210 Nicotine dependence, cigarettes, uncomplicated
CPT/HCPCS: 99284

== ENCOUNTER 2017-08-11 03:45 | Emergency (ER) | payer MEDICAID ==
[~2017-08-11] VITALS: Ht 160 cm; Wt 54.0 kg
[~2017-08-11 03:45] MED LIST changes: +SERT100T PO; -SERT20OR PO
[2017-08-11] MEDS ORDERED: GABA600T2 PO (03:58)
[2017-08-11] MEDS ORDERED: KETOROLAC 30 MG/1 ML IM ONE (04:00)
[2017-08-11] MEDS ORDERED: OXYcodone/APAP 5/325MG TABLET PO ONE (04:00)
[2017-08-11] MEDS ORDERED: OXYcodone/APAP 5/325MG TABLET ONE (04:18)
[2017-08-11] MEDS ORDERED: KETOROLAC 30 MG/1 ML ONE (04:18)
[2017-08-11] MEDS ORDERED: ZIPRASIDONE 20 MG INJ IM ONE ×2 (06:00→06:02)
[2017-08-11 06:18] VITALS: BP 122/74
== END 2017-08-11 06:22 | disposition home or self-care (01) ==
LOC: ED 04:36
DX: S39.012A Strain of muscle, fascia and tendon of lower back, initial encounter (principal); G89.11 Acute pain due to trauma; J44.9 Chronic obstructive pulmonary disease, unspecified; G43.909 Migraine, unspecified, not intractable, without status migrainosus; X58.XXXA Exposure to other specified factors, initial encounter; Y93.89 Activity, other specified; Y92.89 Other specified places as the place of occurrence of the external cause; Y99.8 Other external cause status
CPT/HCPCS: 72110; 73502; 96372; 99284; J1885; J3486

== ENCOUNTER 2017-11-01 09:36 | Emergency (ER) | payer MEDICAID ==
[~2017-11-01] VITALS: Ht 160 cm; Wt 57.0 kg
[~2017-11-01 09:36] MED LIST changes: +GABA600T2 PO
[2017-11-01] MEDS ORDERED: OXYcodone/APAP 5/325MG TABLET ONE (10:24)
[2017-11-01] MEDS ORDERED: OXYcodone/APAP 5/325MG TABLET PO ONE (10:30)
[2017-11-01] MEDS ORDERED: ONDANSETRON ODT 4 MG ONE (10:42)
[2017-11-01] MEDS ORDERED: ONDANSETRON ODT 4 MG PO ONE (11:00)
[2017-11-01 12:17] VITALS: BP 112/63
== END 2017-11-01 12:20 | disposition home or self-care (01) ==
LOC: ED 12:00
DX: S60.221A Contusion of right hand, initial encounter (principal); S80.01XA Contusion of right knee, initial encounter; S60.222A Contusion of left hand, initial encounter; S80.02XA Contusion of left knee, initial encounter; S50.311A Abrasion of right elbow, initial encounter; M25.461 Effusion, right knee; J44.9 Chronic obstructive pulmonary disease, unspecified; M19.90 Unspecified osteoarthritis, unspecified site; Z90.710 Acquired absence of both cervix and uterus; W01.0XXA Fall on same level from slipping, tripping and stumbling without subsequent striking against object, initial encounter; Y93.89 Activity, other specified; Y92.488 Other paved roadways as the place of occurrence of the external cause; Y99.2 Volunteer activity
CPT/HCPCS: 29125; 29505; 73110; 73564; 99284; Q0162

== ENCOUNTER 2018-01-08 03:13 | Emergency (ER) | payer MEDICAID ==
[~2018-01-08] VITALS: Ht 160 cm; Wt 59.0 kg
[2018-01-08 04:20] LABS: BASOPHILS # (AUTO) 0.04 x10^3/uL (0-0.1); BASOPHILS % (AUTO) 1 % (0-1); EOSINOPHILS # (AUTO) 0.26 x10^3/uL (0-0.4); EOSINOPHILS % (AUTO) 4 % (1-7); LYMPHOCYTES # (AUTO) 1.64 x10^3/uL (1-3.4); LYMPHOCYTES % (AUTO) 22 % (22-44); MD NO; MEAN CORPUSCULAR HEMOGLOBIN 35.8 pg (27.0-34.8); MEAN CORPUSCULAR HGB CONC 33.6 g/dL (32.4-35.8); MEAN CORPUSCULAR VOLUME 106.8 fL (80-100); MEAN PLATELET VOLUME 8.3 fL (7.4-10.4); MONOCYTES # (AUTO) 0.75 x10^3/uL (0.2-0.8); MONOCYTES % (AUTO) 10 % (2-9); NEUTROPHILS % (AUTO) 65 % (42-75); PLATELET COUNT 160 x10^3/uL (130-400); RED BLOOD COUNT 4.39 x10^6/uL (3.82-5.3); RED CELL DISTRIBUTION WIDTH 14.4 % (9.6-15.2)
[2018-01-08 04:31] LABS: ALBUMIN 3.9 g/dL (3.4-5.0); ANION GAP 8 mmol/L (5-15); CALCIUM 9.2 mg/dL (8.5-10.1); CHLORIDE 104 mmol/L (98-107)
[2018-01-08 04:46] LABS: AMPHETAMINE SCREEN, URINE Negative (Negative); BARBITURATE SCREEN, URINE Negative (Negative); BENZODIAZEPINE SCREEN, URINE Negative (Negative); CANNABINOID SCREEN, URINE Negative (Negative); COCAINE SCREEN, URINE Negative (Negative); METHADONE SCREEN, URINE Negative (Negative); OPIATE SCREEN, URINE Negative (Negative)
[2018-01-08 05:12] LABS: CULTURE INDICATED? YES; MICROSCOPIC INDICATED
[2018-01-08 05:28] VITALS: BP 127/95
[2018-01-08] MEDS ORDERED: HYDROcodone/APAP 5/325 TABLET ONE (05:52)
[2018-01-08] MEDS ORDERED: HYDROcodone/APAP 5/325 TABLET PO ONE (06:00)
== END 2018-01-08 06:30 | disposition home or self-care (01) ==
LOC: ED 06:10
DX: G43.909 Migraine, unspecified, not intractable, without status migrainosus (principal); F41.1 Generalized anxiety disorder; J44.9 Chronic obstructive pulmonary disease, unspecified; Z79.899 Other long term (current) drug therapy
CPT/HCPCS: 36415; 70450; 80048; 80307; 81001; 82040; 85025; 87086; 93005; 99285

== ENCOUNTER 2018-02-13 13:06 | Emergency (ER) | payer MEDICAID ==
[~2018-02-13] VITALS: Ht 160 cm; Wt 58.3 kg
[2018-02-13] MEDS ORDERED: OXYcodone/APAP 5/325MG TABLET ONE (13:43)
[2018-02-13] MEDS ORDERED: OXYcodone/APAP 10/325MG TABLET ONE (13:47)
[2018-02-13] MEDS ORDERED: OXYcodone/APAP 10/325MG TABLET PO ONE (14:00)
[2018-02-13] MEDS ORDERED: KETOROLAC 60 MG/2 ML IM ONE (14:00)
[2018-02-13] MEDS ORDERED: KETOROLAC 30 MG/1 ML ONE (14:25)
[2018-02-13 15:06] VITALS: BP 114/85
== END 2018-02-13 15:09 | disposition home or self-care (01) ==
LOC: ED 15:03
DX: G89.11 Acute pain due to trauma (principal); M47.896 Other spondylosis, lumbar region; G43.909 Migraine, unspecified, not intractable, without status migrainosus; J44.9 Chronic obstructive pulmonary disease, unspecified; M19.90 Unspecified osteoarthritis, unspecified site; Z90.710 Acquired absence of both cervix and uterus; F17.200 Nicotine dependence, unspecified, uncomplicated; W10.9XXA Fall (on) (from) unspecified stairs and steps, initial encounter; Y93.89 Activity, other specified; Y92.098 Other place in other non-institutional residence as the place of occurrence of the external cause; Y99.8 Other external cause status
CPT/HCPCS: 36415; 72100; 80047; 96372; 99285; J1885

== ENCOUNTER 2018-03-15 18:14 | Emergency (ER) | payer MEDICAID ==
[~2018-03-15] VITALS: Ht 160 cm; Wt 58.2 kg
[2018-03-15 18:30] VITALS: BP 138/71
[2018-03-15] MEDS ORDERED: ASPIRIN 81 MG TABLET CHEW ONE (19:09)
[2018-03-15 19:20] LABS: BASOPHILS # (AUTO) 0.05 x10^3/uL (0-0.1); BASOPHILS % (AUTO) 1 % (0-1); EOSINOPHILS # (AUTO) 0.26 x10^3/uL (0-0.4); EOSINOPHILS % (AUTO) 4 % (1-7); LYMPHOCYTES # (AUTO) 2.39 x10^3/uL (1-3.4); LYMPHOCYTES % (AUTO) 35 % (22-44); MD NO; MEAN CORPUSCULAR HGB CONC 34.6 g/dL (32.4-35.8); MEAN PLATELET VOLUME 8.3 fL (7.4-10.4); MONOCYTES # (AUTO) 0.41 x10^3/uL (0.2-0.8); MONOCYTES % (AUTO) 6 % (2-9); NEUTROPHILS % (AUTO) 54 % (42-75); PLATELET COUNT 180 x10^3/uL (130-400); RED BLOOD COUNT 4.14 x10^6/uL (3.82-5.3); RED CELL DISTRIBUTION WIDTH 14.3 % (9.6-15.2)
[2018-03-15 19:30] LABS: ALANINE AMINOTRANSFERASE 63 U/L (12-78); ALBUMIN 3.8 g/dL (3.4-5.0); ANION GAP 9 mmol/L (5-15); CALCIUM 8.5 mg/dL (8.5-10.1); CHLORIDE 109 mmol/L (98-107); CREATININE 0.64 mg/dL (0.55-1.02)
[2018-03-15] MEDS ORDERED: ASPIRIN 81 MG TABLET CHEW PO ONE (19:30)
[2018-03-15 19:32] LABS: ALKALINE PHOSPHATASE 123 U/L (45-117); BILIRUBIN,TOTAL 0.3 mg/dL (0.2-1.0); TOTAL PROTEIN 7.6 g/dL (6.4-8.2)
[2018-03-15 19:34] LABS: TROPONIN I < 0.015 ng/mL (0.000-0.045)
== END 2018-03-15 20:31 | disposition home or self-care (01) ==
LOC: ED 19:24
DX: M25.531 Pain in right wrist (principal); R07.89 Other chest pain; J44.9 Chronic obstructive pulmonary disease, unspecified; F32.9 Major depressive disorder, single episode, unspecified; F17.200 Nicotine dependence, unspecified, uncomplicated; Z90.710 Acquired absence of both cervix and uterus
CPT/HCPCS: 29260; 36415; 71046; 80053; 84484; 85025; 93005; 99285

== ENCOUNTER 2018-03-21 23:19 | Emergency (ER) | payer MEDICAID ==
[~2018-03-21] VITALS: Ht 170.2 cm; Wt 60.0 kg
[2018-03-21] MEDS ORDERED: HYDROcodone/APAP 5/325 TABLET PO ONE (23:30)
[2018-03-21] MEDS ORDERED: HYDROcodone/APAP 5/325 TABLET ONE (23:53)
[2018-03-22 01:14] VITALS: BP 133/80
== END 2018-03-22 02:18 | disposition home or self-care (01) ==
LOC: ED 23:45
DX: S90.31XA Contusion of right foot, initial encounter (principal); G43.909 Migraine, unspecified, not intractable, without status migrainosus; J44.9 Chronic obstructive pulmonary disease, unspecified; M19.90 Unspecified osteoarthritis, unspecified site; Z90.710 Acquired absence of both cervix and uterus; W50.0XXA Accidental hit or strike by another person, initial encounter; Y93.89 Activity, other specified; Y92.89 Other specified places as the place of occurrence of the external cause; Y99.8 Other external cause status
CPT/HCPCS: 29515; 99284

== ENCOUNTER 2018-03-31 20:13 | Emergency (ER) | payer MEDICAID ==
[~2018-03-31] VITALS: Ht 160 cm; Wt 56.2 kg
[2018-03-31] MEDS ORDERED: ALBUTEROL/IPRATROPIUM 2.5MG/0.5MG, 3 ML NPPB SCH (21:00)
[2018-03-31 21:31] LABS: BASOPHILS # (AUTO) 0.02 x10^3/uL (0-0.1); BASOPHILS % (AUTO) 0 % (0-1); EOSINOPHILS % (AUTO) 1 % (1-7); LYMPHOCYTES # (AUTO) 1.21 x10^3/uL (1-3.4); LYMPHOCYTES % (AUTO) 15 % (22-44); MD NO; MEAN CORPUSCULAR HEMOGLOBIN 36.3 pg (27.0-34.8); MEAN CORPUSCULAR HGB CONC 34.5 g/dL (32.4-35.8); MEAN CORPUSCULAR VOLUME 105.2 fL (80-100); MEAN PLATELET VOLUME 8.3 fL (7.4-10.4); MONOCYTES # (AUTO) 0.67 x10^3/uL (0.2-0.8); MONOCYTES % (AUTO) 8 % (2-9); NEUTROPHILS % (AUTO) 75 % (42-75); PLATELET COUNT 150 x10^3/uL (130-400); RED BLOOD COUNT 4.28 x10^6/uL (3.82-5.3); RED CELL DISTRIBUTION WIDTH 15.2 % (9.6-15.2)
[2018-03-31 21:42] LABS: ALANINE AMINOTRANSFERASE 36 U/L (12-78); ANION GAP 11 mmol/L (5-15); CALCIUM 9.2 mg/dL (8.5-10.1); CHLORIDE 99 mmol/L (98-107); CREATININE 0.51 mg/dL (0.55-1.02)
[2018-03-31 21:44] LABS: ALKALINE PHOSPHATASE 129 U/L (45-117); BILIRUBIN,TOTAL 0.9 mg/dL (0.2-1.0)
[2018-03-31] MEDS ORDERED: ALBUTEROL/IPRATROPIUM 2.5MG/0.5MG, 3 ML ONE (22:39)
[2018-03-31 23:16] LABS: MICROSCOPIC INDICATED
[2018-03-31 23:17] LABS: CULTURE INDICATED? YES
[2018-03-31] MEDS ORDERED: ONDANSETRON 2MG/ML, 2ML IVPush ONE (23:30)
[2018-03-31] MEDS ORDERED: SODIUM CHLORIDE 0.9% 1,000ML IVBOLUS ONE (23:30)
[2018-03-31 23:42] LABS: TROPONIN I < 0.015 ng/mL (0.000-0.045)
[2018-03-31] MEDS ORDERED: ONDANSETRON 2MG/ML, 2ML ONE (23:56)
[2018-03-31] MEDS ORDERED: MORPHINE SULFATE 4 MG/ML, 1ML ONE (23:57)
[2018-04-01] MEDS: MORPHINE SULFATE 4 MG/ML, 1ML IVPush PRN ×2 (00:17→01:31)
[2018-04-01] MEDS ORDERED: OMNIPAQUE 350 MG/ML, 100ML BOTTLE ONE (00:29)
[2018-04-01] MEDS ORDERED: MORPHINE SULFATE 4 MG/ML, 1ML ONE (01:21)
[2018-04-01] MEDS ORDERED: METOCLOPRAMIDE 5 MG/ML, 2ML IVPush ONE (01:30)
[2018-04-01] MEDS ORDERED: LORazepam 2 MG/ML, 1ML IVPush ONE (01:30)
[2018-04-01] MEDS ORDERED: LORazepam 2 MG/ML, 1ML ONE (01:57)
[2018-04-01] MEDS ORDERED: METOCLOPRAMIDE 5 MG/ML, 2ML ONE (01:57)
[2018-04-01 03:01] VITALS: BP 117/66
== END 2018-04-01 03:04 | disposition home or self-care (01) ==
LOC: ED 23:45
DX: K86.0 Alcohol-induced chronic pancreatitis (principal); K29.20 Alcoholic gastritis without bleeding; F10.10 Alcohol abuse, uncomplicated; G89.29 Other chronic pain; M19.90 Unspecified osteoarthritis, unspecified site; J44.9 Chronic obstructive pulmonary disease, unspecified; Z79.899 Other long term (current) drug therapy
CPT/HCPCS: 36415; 71045; 74177; 80053; 80307; 81001; 83690; 84484; 85025; 87086; 93005; 94640; 96361; 96374; 96375; 96376; 99285; J2060; J2405; J2765; J7030; Q9967; 87077

== ENCOUNTER 2018-04-23 15:36 | Emergency (ER) | payer MEDICAID ==
[~2018-04-23] VITALS: Ht 160 cm; Wt 58.0 kg
[2018-04-23 15:46] VITALS: BP 87/54
[2018-04-23] MEDS ORDERED: SODIUM CHLORIDE 0.9% 1,000 ML IV ONE (15:54)
[2018-04-23] MEDS ORDERED: SODIUM CHLORIDE 0.9% 1,000ML IVBOLUS ONE (16:00)
[2018-04-23] MEDS ORDERED: SODIUM CHLORIDE FLUSH 10ML SYR IVF ONE (16:00)
== END 2018-04-23 17:29 | disposition home or self-care (01) ==
LOC: ED 17:23
DX: R55 Syncope and collapse (principal); G43.909 Migraine, unspecified, not intractable, without status migrainosus; J44.9 Chronic obstructive pulmonary disease, unspecified; F41.9 Anxiety disorder, unspecified; F32.9 Major depressive disorder, single episode, unspecified; Z87.19 Personal history of other diseases of the digestive system; Z72.9 Problem related to lifestyle, unspecified; Z87.09 Personal history of other diseases of the respiratory system; Z90.710 Acquired absence of both cervix and uterus
CPT/HCPCS: 93005; 96360; 99284; J7030

== ENCOUNTER 2018-05-02 20:12 | Inpatient (IN) | payer MEDICAID ==
[~2018-05-02] VITALS: Ht 160 cm; Wt 62.2 kg
[2018-05-02 20:30] VITALS: BP 114/77
[2018-05-02] MEDS ORDERED: ONDANSETRON 2MG/ML, 2ML ONE (20:49)
[2018-05-02] MEDS ORDERED: MORPHINE SULFATE 4 MG/ML, 1ML ONE (20:49)
[2018-05-02 20:50] LABS: CULTURE INDICATED? YES; MICROSCOPIC INDICATED
[2018-05-02 20:56] LABS: BASOPHILS # (AUTO) 0.03 x10^3/uL (0-0.1); BASOPHILS % (AUTO) 0 % (0-1); EOSINOPHILS % (AUTO) 0 % (1-7); LYMPHOCYTES # (AUTO) 1.22 x10^3/uL (1-3.4); LYMPHOCYTES % (AUTO) 10 % (22-44); MD NO; MEAN CORPUSCULAR HEMOGLOBIN 36.4 pg (27.0-34.8); MEAN CORPUSCULAR HGB CONC 34.8 g/dL (32.4-35.8); MEAN CORPUSCULAR VOLUME 104.8 fL (80-100); MEAN PLATELET VOLUME 8.2 fL (7.4-10.4); MONOCYTES # (AUTO) 1.26 x10^3/uL (0.2-0.8); MONOCYTES % (AUTO) 10 % (2-9); NEUTROPHILS # (AUTO) 9.83 x10^3/uL (1.8-6.8); NEUTROPHILS % (AUTO) 80 % (42-75); PLATELET COUNT 144 x10^3/uL (130-400); RED BLOOD COUNT 3.88 x10^6/uL (3.82-5.3); RED CELL DISTRIBUTION WIDTH 15.4 % (9.6-15.2)
[2018-05-02] MEDS ORDERED: SODIUM CHLORIDE 0.9% 1,000ML IVBOLUS ONE (21:00)
[2018-05-02] MEDS ORDERED: SODIUM CHLORIDE FLUSH 10ML SYR IVF ONE (21:00)
[2018-05-02] MEDS ORDERED: MORPHINE SULFATE 4 MG/ML, 1ML IVPush PRN (21:00)
[2018-05-02] MEDS ORDERED: ONDANSETRON ODT 4 MG PO ONE (21:00)
[2018-05-02] MEDS ORDERED: CEFTRIAXONE PMX 2GM/50ML 50 ML ONE (21:04)
[2018-05-02] MEDS ORDERED: ACETAMINOPHEN 325 MG TABLET ONE (21:04)
[2018-05-02 21:08] LABS: ALANINE AMINOTRANSFERASE 30 U/L (12-78); ALBUMIN 3.1 g/dL (3.4-5.0); ANION GAP 6 mmol/L (5-15); CALCIUM 8.2 mg/dL (8.5-10.1); CHLORIDE 104 mmol/L (98-107)
[2018-05-02 21:10] LABS: ALKALINE PHOSPHATASE 108 U/L (45-117); BILIRUBIN,TOTAL 0.6 mg/dL (0.2-1.0); TOTAL PROTEIN 6.9 g/dL (6.4-8.2)
[2018-05-02] MEDS ORDERED: CEFTRIAXONE PMX 2GM/50ML 50 ML IV ONE (21:30)
[2018-05-02] MEDS ORDERED: ACETAMINOPHEN 325 MG TABLET PO ONE (21:30)
[2018-05-02] MEDS ORDERED: POLYETHYLENE GLYCOL 17 GM PACKET PO PRN (22:30)
[2018-05-02] MEDS ORDERED: ACETAMINOPHEN 325 MG TABLET PO PRN (22:30)
[2018-05-02] MEDS ORDERED: AMPICILLIN 500 MG in SODIUM CHLORIDE 0.9% 100 ML IV SCH (22:30)
[2018-05-02] MEDS ORDERED: BISACODYL 10 MG SUPP PR PRN (22:30)
[2018-05-02] MEDS: NICOTINE 14MG/24 HR PATCH.TD24 TD SCH (22:30)
[2018-05-02] MEDS ORDERED: CYCLOBENZAPRINE HCL 5 MG PO SCH (22:30)
[2018-05-02 22:49] LABS: FOLATE LEVEL 6.5 ng/mL (3.1-17.5)
[2018-05-02] MEDS: HEPARIN 5,000 UNITS/ML, 1ML SQ SCH (23:27)
[2018-05-02] MEDS: KETOROLAC 30 MG/1 ML IV PRN (23:42)
[2018-05-03] MEDS ORDERED: MECL12.52 PO (00:24)
[2018-05-03 00:29] VITALS: BP 107/71
[2018-05-03] MEDS: NS + 20MEQ KCL 1,000 ML IV SCH ×3 (00:36→15:30)
[2018-05-03 01:44] VITALS: BP 99/66
[2018-05-03] MEDS: CEFEPIME 1 GM in DEXTROSE 5% 50 ML IV SCH ×2 (02:52→14:31)
[2018-05-03] MEDS ORDERED: ZOLPIDEM 5MG TABLET PO PRN (03:00)
[2018-05-03] MEDS: KETOROLAC 30 MG/1 ML IV PRN ×2 (05:28→14:30)
[2018-05-03 05:36] LABS: ALBUMIN 2.7 g/dL (3.4-5.0); ANION GAP 6 mmol/L (5-15); CALCIUM 7.6 mg/dL (8.5-10.1); CHLORIDE 104 mmol/L (98-107)
[2018-05-03 05:39] LABS: ALANINE AMINOTRANSFERASE 27 U/L (12-78); ALKALINE PHOSPHATASE 93 U/L (45-117); BILIRUBIN,TOTAL 0.5 mg/dL (0.2-1.0); CREATININE 0.46 mg/dL (0.55-1.02)
[2018-05-03 05:41] LABS: MEAN CORPUSCULAR HEMOGLOBIN 36.3 pg (27.0-34.8); MEAN CORPUSCULAR HGB CONC 34.7 g/dL (32.4-35.8); MEAN CORPUSCULAR VOLUME 104.5 fL (80-100); MEAN PLATELET VOLUME 8.8 fL (7.4-10.4); PLATELET COUNT 108 x10^3/uL (130-400); RED BLOOD COUNT 3.51 x10^6/uL (3.82-5.3); RED CELL DISTRIBUTION WIDTH 16.2 % (9.6-15.2)
[2018-05-03 06:23] LABS: BASOPHILS # (AUTO) 0.03 x10^3/uL (0-0.1); BASOPHILS % (AUTO) 0 % (0-1); EOSINOPHILS # (AUTO) 0.01 x10^3/uL (0-0.4); EOSINOPHILS % (AUTO) 0 % (1-7); LYMPHOCYTES # (AUTO) 0.63 x10^3/uL (1-3.4); LYMPHOCYTES % (AUTO) 6 % (22-44); MD SCAN; MONOCYTES % (AUTO) 9 % (2-9); NEUTROPHILS # (AUTO) 8.88 x10^3/uL (1.8-6.8); NEUTROPHILS % (AUTO) 84 % (42-75)
[2018-05-03] MEDS ORDERED: MAGNESIUM SULFATE 3 GM in SODIUM CHLORIDE 0.9% 100 ML IV ONE (07:00)
[2018-05-03] MEDS ORDERED: POTASSIUM CHLORIDE 20 MEQ TAB.ER.PRT PO ONE (07:00)
[2018-05-03] MEDS: SENNA/DOCUSATE TABLET PO SCH (08:03)
[2018-05-03] MEDS: HEPARIN 5,000 UNITS/ML, 1ML SQ SCH ×3 (08:03→22:52)
[2018-05-03 08:17] VITALS: BP 95/64
[2018-05-03 13:20] VITALS: BP 98/65
[2018-05-03 14:46] VITALS: BP 105/69
[2018-05-03 20:06] VITALS: BP 112/72
[2018-05-03] MEDS: NICOTINE 14MG/24 HR PATCH.TD24 TD SCH (22:30)
[2018-05-03] MEDS ORDERED: MORPHINE SULFATE 4 MG/ML, 1ML IVPush ONE (22:30)
[2018-05-04] MEDS: NS + 20MEQ KCL 1,000 ML IV SCH ×3 (00:32→20:53)
[2018-05-04] MEDS: CEFEPIME 1 GM in DEXTROSE 5% 50 ML IV SCH (02:10)
[2018-05-04 02:41] VITALS: BP 113/75
[2018-05-04] MEDS: KETOROLAC 30 MG/1 ML IV PRN ×4 (03:05→22:35)
[2018-05-04 05:23] LABS: ALBUMIN 2.5 g/dL (3.4-5.0); ANION GAP 5 mmol/L (5-15); CALCIUM 7.7 mg/dL (8.5-10.1); CHLORIDE 106 mmol/L (98-107)
[2018-05-04 05:25] LABS: CREATININE 0.42 mg/dL (0.55-1.02)
[2018-05-04 05:31] LABS: MEAN CORPUSCULAR HEMOGLOBIN 36.3 pg (27.0-34.8); MEAN CORPUSCULAR HGB CONC 34.1 g/dL (32.4-35.8); MEAN CORPUSCULAR VOLUME 106.5 fL (80-100); MEAN PLATELET VOLUME 9.2 fL (7.4-10.4); PLATELET COUNT 99 x10^3/uL (130-400); RED CELL DISTRIBUTION WIDTH 16.5 % (9.6-15.2)
[2018-05-04 06:15] LABS: BASOPHILS # (AUTO) 0.02 x10^3/uL (0-0.1); BASOPHILS % (AUTO) 0 % (0-1); EOSINOPHILS # (AUTO) 0.06 x10^3/uL (0-0.4); EOSINOPHILS % (AUTO) 1 % (1-7); LYMPHOCYTES # (AUTO) 0.53 x10^3/uL (1-3.4); LYMPHOCYTES % (AUTO) 11 % (22-44); MD SCAN; MONOCYTES # (AUTO) 0.49 x10^3/uL (0.2-0.8); MONOCYTES % (AUTO) 10 % (2-9); NEUTROPHILS # (AUTO) 3.84 x10^3/uL (1.8-6.8); NEUTROPHILS % (AUTO) 78 % (42-75)
[2018-05-04] MEDS: HEPARIN 5,000 UNITS/ML, 1ML SQ SCH ×3 (06:32→22:35)
[2018-05-04 06:42] VITALS: BP 106/71
[2018-05-04 07:43] VITALS: BP 108/71
[2018-05-04] MEDS: SENNA/DOCUSATE TABLET PO SCH (08:12)
[2018-05-04] MEDS: CEFTRIAXONE PMX 2GM/50ML 50 ML IV SCH (10:20)
[2018-05-04 13:27] VITALS: BP 114/78
[2018-05-04] MEDS: ONDANSETRON ODT 4 MG PO PRN ×2 (14:06→22:47)
[2018-05-04 20:00] VITALS: BP 112/68
[2018-05-04] MEDS: NICOTINE 14MG/24 HR PATCH.TD24 TD SCH (22:38)
[2018-05-05 01:53] VITALS: BP 118/72
[2018-05-05] MEDS: KETOROLAC 30 MG/1 ML IV PRN ×3 (04:35→16:48)
[2018-05-05] MEDS: ONDANSETRON ODT 4 MG PO PRN (04:43)
[2018-05-05] MEDS: NS + 20MEQ KCL 1,000 ML IV SCH ×2 (05:08→16:49)
[2018-05-05] MEDS: HEPARIN 5,000 UNITS/ML, 1ML SQ SCH ×3 (06:14→22:19)
[2018-05-05 06:24] LABS: BASOPHILS # (AUTO) 0.02 x10^3/uL (0-0.1); BASOPHILS % (AUTO) 0 % (0-1); EOSINOPHILS # (AUTO) 0.04 x10^3/uL (0-0.4); EOSINOPHILS % (AUTO) 1 % (1-7); LYMPHOCYTES # (AUTO) 0.44 x10^3/uL (1-3.4); LYMPHOCYTES % (AUTO) 10 % (22-44); MD NO; MEAN CORPUSCULAR HEMOGLOBIN 36.7 pg (27.0-34.8); MEAN PLATELET VOLUME 8.9 fL (7.4-10.4); MONOCYTES # (AUTO) 0.63 x10^3/uL (0.2-0.8); MONOCYTES % (AUTO) 14 % (2-9); NEUTROPHILS # (AUTO) 3.26 x10^3/uL (1.8-6.8); NEUTROPHILS % (AUTO) 74 % (42-75); PLATELET COUNT 119 x10^3/uL (130-400); RED BLOOD COUNT 3.19 x10^6/uL (3.82-5.3); RED CELL DISTRIBUTION WIDTH 16.4 % (9.6-15.2)
[2018-05-05 06:34] LABS: ALBUMIN 2.6 g/dL (3.4-5.0); ANION GAP 7 mmol/L (5-15); CHLORIDE 103 mmol/L (98-107)
[2018-05-05 06:35] LABS: CREATININE 0.37 mg/dL (0.55-1.02)
[2018-05-05 07:26] VITALS: BP 124/80
[2018-05-05] MEDS ORDERED: OMNIPAQUE 350 MG/ML, 100ML BOTTLE ONE (10:38)
[2018-05-05] MEDS: CEFTRIAXONE PMX 2GM/50ML 50 ML IV SCH (10:45)
[2018-05-05] MEDS: LORazepam 0.5MG TABLET PO PRN ×2 (10:45→19:14)
[2018-05-05] MEDS: SENNA/DOCUSATE TABLET PO SCH (10:45)
[2018-05-05 13:32] VITALS: BP 106/71
[2018-05-05] MEDS: DOXYCYCLINE 100 MG in DEXTROSE 5% 250 ML IV SCH (13:32)
[2018-05-05 20:00] VITALS: BP 111/71
[2018-05-05] MEDS: NICOTINE 14MG/24 HR PATCH.TD24 TD SCH (22:18)
[2018-05-06] MEDS: KETOROLAC 30 MG/1 ML IV PRN ×2 (00:45→10:09)
[2018-05-06] MEDS: DOXYCYCLINE 100 MG in DEXTROSE 5% 250 ML IV SCH (00:46)
[2018-05-06 02:00] VITALS: BP 127/81
[2018-05-06] MEDS: NS + 20MEQ KCL 1,000 ML IV SCH (02:46)
[2018-05-06] MEDS: LORazepam 0.5MG TABLET PO PRN (04:33)
[2018-05-06 05:21] LABS: ALBUMIN 2.6 g/dL (3.4-5.0); ANION GAP 8 mmol/L (5-15); CALCIUM 8.6 mg/dL (8.5-10.1); CHLORIDE 103 mmol/L (98-107); CREATININE 0.38 mg/dL (0.55-1.02)
[2018-05-06] MEDS: HEPARIN 5,000 UNITS/ML, 1ML SQ SCH (06:25)
[2018-05-06 07:49] VITALS: BP 125/82
[2018-05-06] MEDS: CEFTRIAXONE PMX 2GM/50ML 50 ML IV SCH (10:09)
[2018-05-06] MEDS: ONDANSETRON ODT 4 MG PO PRN (10:11)
[2018-05-06] MEDS ORDERED: L.AC1CAP6 PO (11:28)
[2018-05-06] MEDS ORDERED: DOXY100T10 PO (11:28)
[2018-05-06] MEDS ORDERED: NICO-486 TD (11:28)
[2018-05-06] MEDS ORDERED: CEFD300C37 PO (11:28)
== END 2018-05-06 12:50 | disposition home or self-care (01) | DRG 871 ==
LOC: ED 20:47 → EDIP 22:05 → 3NE 22:36 → DCLOUNGE 05-06 12:40
PROVIDERS: ADMIT Internal Medicine; ATTEND Internal Medicine
DX: A41.9 Sepsis, unspecified organism (principal); J96.01 Acute respiratory failure with hypoxia; N12 Tubulo-interstitial nephritis, not specified as acute or chronic; E44.1 Mild protein-calorie malnutrition; K86.1 Other chronic pancreatitis; K86.3 Pseudocyst of pancreas; B96.20 Unspecified Escherichia coli [E. coli] as the cause of diseases classified elsewhere; D69.59 Other secondary thrombocytopenia; D75.89 Other specified diseases of blood and blood-forming organs; E83.42 Hypomagnesemia; E87.6 Hypokalemia; F17.210 Nicotine dependence, cigarettes, uncomplicated; F41.1 Generalized anxiety disorder; G89.29 Other chronic pain; I10 Essential (primary) hypertension; J44.9 Chronic obstructive pulmonary disease, unspecified; F11.90 Opioid use, unspecified, uncomplicated; F32.9 Major depressive disorder, single episode, unspecified; G43.909 Migraine, unspecified, not intractable, without status migrainosus; Z68.24 Body mass index [BMI] 24.0-24.9, adult; Z90.710 Acquired absence of both cervix and uterus; Z91.19 Patient's noncompliance with other medical treatment and regimen
CPT/HCPCS: 36415; 71045; 71275; 74176; 76770; 80048; 80053; 81001; 82040; 82607; 82746; 83605; 83735; 84145; 84443; 85025; 85379; 87040; 87077; 87086; 87186; 99285; G0378; J0692; J0696; J1644; J1885; J3475; J3480; J7060; Q0162; Q9967; J0290; J7030

== ENCOUNTER 2018-05-07 15:57 | Emergency (ER) | payer MEDICAID ==
[~2018-05-07] VITALS: Ht 160 cm; Wt 58.0 kg
[~2018-05-07 15:57] MED LIST changes: +DOXY100T10 PO; +L.AC1CAP6 PO; +MECL12.52 PO; +NICO-486 TD
[2018-05-07] MEDS ORDERED: ONDANSETRON 2MG/ML, 2ML IVPush ONE (16:30)
[2018-05-07] MEDS ORDERED: SODIUM CHLORIDE FLUSH 10ML SYR IVF ONE (16:30)
[2018-05-07] MEDS ORDERED: ONDANSETRON 2MG/ML, 2ML ONE (16:34)
[2018-05-07] MEDS ORDERED: KETOROLAC 30 MG/1 ML ONE (16:49)
[2018-05-07 16:59] LABS: BASOPHILS # (AUTO) 0.03 x10^3/uL (0-0.1); BASOPHILS % (AUTO) 0 % (0-1); EOSINOPHILS # (AUTO) 0.04 x10^3/uL (0-0.4); EOSINOPHILS % (AUTO) 1 % (1-7); LYMPHOCYTES # (AUTO) 1.41 x10^3/uL (1-3.4); LYMPHOCYTES % (AUTO) 20 % (22-44); MD NO; MEAN CORPUSCULAR HEMOGLOBIN 36.1 pg (27.0-34.8); MEAN CORPUSCULAR HGB CONC 34.4 g/dL (32.4-35.8); MEAN CORPUSCULAR VOLUME 105.1 fL (80-100); MEAN PLATELET VOLUME 8.6 fL (7.4-10.4); MONOCYTES # (AUTO) 0.99 x10^3/uL (0.2-0.8); MONOCYTES % (AUTO) 14 % (2-9); NEUTROPHILS % (AUTO) 65 % (42-75); PLATELET COUNT 262 x10^3/uL (130-400); RED BLOOD COUNT 4.09 x10^6/uL (3.82-5.3); RED CELL DISTRIBUTION WIDTH 16.1 % (9.6-15.2)
[2018-05-07] MEDS ORDERED: KETOROLAC 30 MG/1 ML IVPush ONE (17:00)
[2018-05-07 17:05] LABS: ALBUMIN 3.5 g/dL (3.4-5.0); ANION GAP 8 mmol/L (5-15); CALCIUM 9.3 mg/dL (8.5-10.1); CHLORIDE 105 mmol/L (98-107); CREATININE 0.61 mg/dL (0.55-1.02)
[2018-05-07 17:07] LABS: CULTURE INDICATED? YES; MICROSCOPIC INDICATED
[2018-05-07 17:28] VITALS: BP 124/72
== END 2018-05-07 18:14 | disposition home or self-care (01) ==
LOC: ED 18:12
DX: M54.5 Low back pain (principal); R39.89 Other symptoms and signs involving the genitourinary system; R10.9 Unspecified abdominal pain; F17.200 Nicotine dependence, unspecified, uncomplicated; F32.9 Major depressive disorder, single episode, unspecified; J44.9 Chronic obstructive pulmonary disease, unspecified; Z72.9 Problem related to lifestyle, unspecified
CPT/HCPCS: 36415; 80048; 81001; 82040; 83605; 84145; 85025; 87040; 87086; 96374; 96375; 99284; J1885; J2405

== ENCOUNTER 2018-05-12 08:52 | Emergency (ER) | payer MEDICAID ==
[2018-05-12 08:56] VITALS: BP 113/70
== END 2018-05-12 09:49 | disposition left against medical advice (07) ==
LOC: ED 09:43
DX: Z53.21 Procedure and treatment not carried out due to patient leaving prior to being seen by health care provider (principal)

== ENCOUNTER 2018-06-27 00:57 | Emergency (ER) | payer MEDICAID ==
[~2018-06-27] VITALS: Ht 160 cm; Wt 56.0 kg
--- NOTE | 2018-06-27 02:42 | NUR ---
AMBULATE TO ROOM WITH STEADY GAIT, AWAIT MD FOR EVAL.
[2018-06-27] MEDS ORDERED: DIAZEPAM 5 MG TABLET PO ONE (03:00)
[2018-06-27] MEDS ORDERED: HYDROcodone/APAP 5/325 TABLET PO ONE (03:00)
[2018-06-27] MEDS ORDERED: HYDROcodone/APAP 5/325 TABLET ONE (03:05)
[2018-06-27] MEDS ORDERED: DIAZEPAM 5 MG TABLET ONE (03:06)
--- NOTE | 2018-06-27 03:15 | NUR ---
PLEASANT LADMigdalia, MEDICATED PER AUG. CURRENTLY AND NOTED THAT SHE HAS A RIDE HOME
[2018-06-27 03:17] VITALS: BP 108/66
== END 2018-06-27 03:40 | disposition home or self-care (01) ==
LOC: ED 02:52
DX: M54.5 Low back pain (principal); M19.90 Unspecified osteoarthritis, unspecified site; J44.9 Chronic obstructive pulmonary disease, unspecified; I10 Essential (primary) hypertension; E11.9 Type 2 diabetes mellitus without complications; F32.9 Major depressive disorder, single episode, unspecified; Z72.9 Problem related to lifestyle, unspecified
CPT/HCPCS: 99283

== ENCOUNTER 2018-06-30 13:38 | Emergency (ER) | payer MEDICAID ==
[~2018-06-30] VITALS: Ht 162.6 cm; Wt 57.4 kg
[2018-06-30 13:54] VITALS: BP 95/76
--- NOTE | 2018-06-30 14:00 | NUR ---
PT ARRIVES TO ED WITH C/O OF HERNANDEZ WITH SIMILAR SYMPTOMS TO BEFORE. PT REPORTS THAT SHE WENT TO HER MD AND HAD NO RELIEF. PT DENIES ANY RECENT DRUG USE OR ETOH USE. PT IS A/OX4 WITH NO NEURO DEFICETS.
[2018-06-30] MEDS ORDERED: ONDANSETRON ODT 4 MG ONE (14:21)
[2018-06-30] MEDS ORDERED: KETOROLAC 30 MG/1 ML ONE (14:21)
[2018-06-30] MEDS ORDERED: DIPHENHYDRAMINE 50 MG CAPSULE ONE (14:21)
[2018-06-30] MEDS ORDERED: KETOROLAC 30 MG/1 ML IM ONE (14:30)
[2018-06-30] MEDS ORDERED: DIPHENHYDRAMINE 25 MG CAPSULE PO ONE (14:30)
[2018-06-30] MEDS ORDERED: ONDANSETRON 8 MG TABLET PO ONE (14:30)
--- NOTE | 2018-06-30 14:30 | NUR ---
P REFUSING MEDICATIONS, WANTS MORPHINE FOR PAIN CONTROL.
[2018-06-30 14:38] LABS: BASOPHILS # (AUTO) 0.11 x10^3/uL (0-0.1); BASOPHILS % (AUTO) 1 % (0-1); EOSINOPHILS % (AUTO) 4 % (1-7); LYMPHOCYTES # (AUTO) 1.42 x10^3/uL (1-3.4); LYMPHOCYTES % (AUTO) 15 % (22-44); MD NO; MEAN CORPUSCULAR HEMOGLOBIN 34.8 pg (27.0-34.8); MEAN CORPUSCULAR HGB CONC 33.5 g/dL (32.4-35.8); MEAN CORPUSCULAR VOLUME 103.7 fL (80-100); MEAN PLATELET VOLUME 9.4 fL (7.4-10.4); MONOCYTES # (AUTO) 0.64 x10^3/uL (0.2-0.8); MONOCYTES % (AUTO) 7 % (2-9); NEUTROPHILS # (AUTO) 7.19 x10^3/uL (1.8-6.8); NEUTROPHILS % (AUTO) 74 % (42-75); PLATELET COUNT 342 x10^3/uL (130-400); RED BLOOD COUNT 3.84 x10^6/uL (3.82-5.3); RED CELL DISTRIBUTION WIDTH 17.7 % (9.6-15.2)
[2018-06-30 14:45] LABS: ALBUMIN 3.4 g/dL (3.4-5.0); ANION GAP 8 mmol/L (5-15); CHLORIDE 105 mmol/L (98-107); CREATININE 0.53 mg/dL (0.55-1.02)
--- NOTE | 2018-06-30 14:45 | NUR ---
PT MEDICATED PER EMAR.
--- NOTE | 2018-06-30 15:16 | NUR ---
PT ELOPED NOT IN ROOM.
== END 2018-06-30 15:19 | disposition left against medical advice (07) ==
LOC: ED 14:26
DX: G43.009 Migraine without aura, not intractable, without status migrainosus (principal)
CPT/HCPCS: 36415; 80048; 82040; 85025; 96372; 99283; J1885; Q0162; Q0163

== ENCOUNTER 2020-05-10 23:08 | Emergency (ER) | payer MEDICAID ==
[~2020-05-10] VITALS: Ht 160 cm; Wt 59.0 kg
[~2020-05-10 23:08] MED LIST changes: +AMIT75TA PO; +ASPI-515 PO; +DOCU-131 PO; -DOXY100T10 PO; +DOXY100T23 PO; -GABA600T2 PO; +GABA600T7 PO; -HYDR1TAB12 PO; +HYDR1TAB13 PO; +IBUP-1222 PO; +LAMICTAL; +LAMO100T5 PO; -MECL12.52 PO; +MECL12.581 PO; +MELO15TA6 PO; +ONDA-89 PO; -ONDA4TAB12 PO; +ONDA4TAB7 PO; +OXYC-307 PO; +OXYC10TA47 PO
[2020-05-10 23:15] VITALS: BP 108/71
--- NOTE | 2020-05-10 23:23 | NUR ---
BIB [facility] FOR INCREASING PAIN IN THE RIGHT HIP S/P HIP REPLACEMENT X 10 WEEKS. SHOOTING PAIN ALL THE WAY TO FOOT. 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
[2020-05-10] MEDS ORDERED: HYDROmorphone 1 MG/ML, 1ML INJ IV ONE (23:30)
[2020-05-10] MEDS ORDERED: HYDROmorphone 1 MG/ML, 1ML INJ ONE (23:54)
== END 2020-05-11 00:45 | disposition home or self-care (01) ==
LOC: ED 23:39
DX: M54.16 Radiculopathy, lumbar region (principal); G89.29 Other chronic pain; J44.9 Chronic obstructive pulmonary disease, unspecified; Z90.710 Acquired absence of both cervix and uterus; F17.200 Nicotine dependence, unspecified, uncomplicated; Z96.641 Presence of right artificial hip joint
CPT/HCPCS: 96374; 99283; J1170

== ENCOUNTER 2021-01-17 19:38 | Emergency (ER) | payer MEDICAID ==
[~2021-01-17] VITALS: Ht 160 cm; Wt 64.4 kg
[~2021-01-17 19:38] MED LIST changes: -ASPI-515 PO; +ASPI-963 PO; -CYCL-259 PO; +CYCL10TA2 PO; -MECL12.581 PO; +MECL12.590 PO; -OXYC-302 PO; -OXYC-307 PO; +OXYC-380 PO; +OXYC1TAB14 PO
[2021-01-17] MEDS ORDERED: PROCHLORPERAZINE 5 MG/ML, 2ML ONE (20:24)
[2021-01-17] MEDS ORDERED: DIPHENHYDRAMINE 50 MG/ML, 1ML ONE (20:25)
[2021-01-17] MEDS ORDERED: KETOROLAC 30 MG/1 ML ONE (20:25)
[2021-01-17] MEDS ORDERED: DIPHENHYDRAMINE 50 MG/ML, 1ML IVPush ONE (20:30)
[2021-01-17] MEDS ORDERED: SODIUM CHLORIDE 0.9% 1,000ML IVBOLUS ONE (20:30)
[2021-01-17] MEDS ORDERED: SODIUM CHLORIDE FLUSH 10ML SYR IVF ONE (20:30)
[2021-01-17] MEDS ORDERED: KETOROLAC 30 MG/1 ML IVPush ONE (20:30)
[2021-01-17] MEDS ORDERED: PROCHLORPERAZINE 5 MG/ML, 2ML IVPush ONE (20:30)
--- NOTE | 2021-01-17 20:45 | NUR ---
UPDATED ON PLAN OF CARE. NO NOTED NEEDS. VSS. CALL LIGHT WITHIN REACH. BED IN LOWEST LOCKED POSITION. WILL CONTINUE TO MONITOR.
[2021-01-17 20:48] LABS: BASOPHILS % (AUTO) 1 % (0-1); EOSINOPHILS % (AUTO) 1 % (1-7); LYMPHOCYTES % (AUTO) 29 % (22-44); MEAN CORPUSCULAR HEMOGLOBIN 31.1 pg (27.0-34.8); MEAN CORPUSCULAR HGB CONC 33.7 g/dL (32.4-35.8); MONOCYTES % (AUTO) 8 % (2-9); NEUTROPHILS % (AUTO) 61 % (42-75); PLATELET COUNT 248 x10^3/uL (130-400); RED BLOOD COUNT 4.53 x10^6/uL (3.82-5.3); RED CELL DISTRIBUTION WIDTH 14.5 % (9.6-15.2)
[2021-01-17 21:00] LABS: ALANINE AMINOTRANSFERASE 46 U/L (12-78); ALBUMIN 3.8 g/dL (3.4-5.0); ANION GAP 3 mmol/L (5-15); CALCIUM 9.2 mg/dL (8.5-10.1); CHLORIDE 106 mmol/L (98-107); CREATININE 0.66 mg/dL (0.55-1.02)
[2021-01-17 21:02] LABS: ALKALINE PHOSPHATASE 159 U/L (45-117); BILIRUBIN,TOTAL 0.2 mg/dL (0.2-1.0); TOTAL PROTEIN 7.6 g/dL (6.4-8.2)
[2021-01-17] MEDS ORDERED: BUTALB/APAP/CAFFEINE 50MG/325MG/40MG PO ONE (22:30)
[2021-01-17 22:49] VITALS: BP 107/68
== END 2021-01-17 23:14 | disposition home or self-care (01) ==
LOC: ED 21:03
DX: G43.009 Migraine without aura, not intractable, without status migrainosus (principal); R19.7 Diarrhea, unspecified; R00.0 Tachycardia, unspecified; J44.9 Chronic obstructive pulmonary disease, unspecified; M19.90 Unspecified osteoarthritis, unspecified site; F17.210 Nicotine dependence, cigarettes, uncomplicated; Z96.641 Presence of right artificial hip joint; Z90.710 Acquired absence of both cervix and uterus
CPT/HCPCS: 36415; 80053; 85025; 96361; 96374; 96375; 99284; 99406; J0780; J1200; J1885; J7030

== ENCOUNTER 2021-02-15 21:39 | Emergency (ER) | payer MEDICAID ==
[~2021-02-15] VITALS: Ht 160 cm; Wt 65.9 kg
[2021-02-15] MEDS ORDERED: PROCHLORPERAZINE 5 MG/ML, 2ML IVPush ONE (22:00)
[2021-02-15] MEDS ORDERED: DIPHENHYDRAMINE 50 MG/ML, 1ML IVPush ONE (22:00)
[2021-02-15] MEDS ORDERED: KETOROLAC 15 MG/1ML IVPush ONE (22:00)
[2021-02-15] MEDS ORDERED: DIPHENHYDRAMINE 50 MG/ML, 1ML ONE (22:02)
[2021-02-15] MEDS ORDERED: KETOROLAC 30 MG/1 ML ONE (22:02)
[2021-02-15] MEDS ORDERED: PROCHLORPERAZINE 5 MG/ML, 2ML ONE (22:02)
[2021-02-15] MEDS ORDERED: MORPHINE SULFATE 4 MG/ML, 1ML IVPush ONE (23:00)
[2021-02-15] MEDS ORDERED: MORPHINE SULFATE 4 MG/ML, 1ML ONE (23:08)
[2021-02-15 23:12] VITALS: BP 114/78
== END 2021-02-15 23:35 | disposition home or self-care (01) ==
LOC: ED 22:09
DX: G43.009 Migraine without aura, not intractable, without status migrainosus (principal); J44.9 Chronic obstructive pulmonary disease, unspecified; M19.90 Unspecified osteoarthritis, unspecified site; F17.200 Nicotine dependence, unspecified, uncomplicated
CPT/HCPCS: 96374; 96375; 99284; J1200; J1885; J2270